=== PATIENT | male | born 1935 | race Two or more races ===

== ENCOUNTER 2018-06-23 15:34 | Emergency (ER) | payer MEDICARE, MEDICAID ==
[~2018-06-23] VITALS: Ht 167.6 cm; Wt 68.0 kg
[2018-06-23 15:47] VITALS: BP 154/73
[2018-06-23] MEDS ORDERED: BACITRACIN ZINC OINT PACKET 1 EA PACKET TP ONE ×2 (16:00)
--- NOTE | 2018-06-23 16:04 | NUR ---
CALLED [facility] FOR TRANSPORT BACK TO [facility]
--- NOTE | 2018-06-23 16:06 | NUR ---
SPOKE TO ERUM AT [facility]. ETA = [phone] TRIP #= [id number]
--- NOTE | 2018-06-23 17:16 | NUR ---
PT APPEARS TO BE SITTING PATIENTLY WHILE WAITING FOR AMBULANCE TO TAKE HIM BACK TO [facility].
== END 2018-06-23 17:48 | disposition home or self-care (01) ==
LOC: ER 15:34
DX: S61.412A Laceration without foreign body of left hand, initial encounter (principal); X58.XXXA Exposure to other specified factors, initial encounter; Y93.89 Activity, other specified; Y92.89 Other specified places as the place of occurrence of the external cause; Y99.8 Other external cause status
CPT/HCPCS: 99283; A6402

== ENCOUNTER 2019-10-13 14:39 | Inpatient (IN) | payer MEDICARE, OTHER ==
[~2019-10-13] VITALS: Ht 167.6 cm; Wt 72.6 kg
--- NOTE | 2019-10-13 14:50 | NUR ---
BIB EMS, CAME IN FOR ABD PAIN, TO ER BED 6, HOOKED TO MONITOR, CHANGED TO HOSP GOWN, WARM BLANKET PROVIDED, PATIENT IS ALERT BUT DOES NOT SPEAK [place]ORE[place], AWAITING MD ERICKSON. DR GODOY AT BEDSIDE.
[2019-10-13] MEDS ORDERED: ONDANSETRON HCL/PF 4 MG/2 ML VIAL ONE (14:57)
[2019-10-13] MEDS ORDERED: MORPHINE SULFATE INJ 4 MG/ML DISP.SYRIN ONE (14:57)
[2019-10-13] MEDS ORDERED: IV NS 0.9% 1,000 ML BAG IV ONE (15:00)
[2019-10-13] MEDS ORDERED: ONDANSETRON HCL/PF 4 MG/2 ML VIAL IVP ONE (15:00)
[2019-10-13] MEDS ORDERED: MORPHINE SULFATE INJ 2 MG/ML DISP.SYRIN IV ONE (15:00)
--- NOTE | 2019-10-13 15:00 | NUR ---
DR GODOY AT BEDSIDE, STARTED G18 LAC PIV, FLUIDS AND MEDS GIVE ORDERED
[2019-10-13 15:09] LABS: BASOPHILS % (AUTO) 0.3 % (0.0-2.0); EOSINOPHILS % (AUTO) 0.2 % (0.0-6.0); HEMATOCRIT 27 % (39-51); HEMOGLOBIN 9.1 g/dL (13.5-17.5); LYMPHOCYTES # (AUTO) 0.4 /CMM (0.8-4.8); LYMPHOCYTES % (AUTO) 8.3 % (20.0-44.0); MEAN CORPUSCULAR HGB CONC 34 g/dl (31.0-36.0); MEAN CORPUSCULAR VOLUME 87 fL (80-96); MONOCYTES # (AUTO) 0.5 /CMM (0.1-1.30); MONOCYTES % (AUTO) 9.4 % (2.0-12.0); NEUTROPHILS % (AUTO) 81.8 % (43.0-81.0); PLATELET COUNT (AUTO) 198 /CMM (150-450); RED BLOOD CELL COUNT(AUTO) 3.09 MIL/uL (4.5-6.0); WHITE BLOOD COUNT (AUTO) 4.8 K/uL (4.3-11.0)
[2019-10-13 15:15] LABS: CALCIUM, SERUM 8.2 mg/dL (8.5-10.1); CARBON DIOXIDE 17 mmol/L (21-32); CHLORIDE 97 mmol/L (98-107); CREATININE 2.2 mg/dL (0.6-1.3); GLUCOSE 113 mg/dL (74-106); POTASSIUM 4.9 mmol/L (3.5-5.1); SODIUM SERUM 128 mmol/L (136-145); UREA NITROGEN, BLOOD 63 mg/dL (7-18)
[2019-10-13 15:21] LABS: ALANINE AMINOTRANSFERASE 31 U/L (12-78); ALBUMIN 3.2 g/dL (3.4-5.0); ALKALINE PHOSPHATASE 58 U/L (46-116); ASPARTATE AMINOTRANSFERASE 58 U/L (15-37); BILIRUBIN,DIRECT 0.1 mg/dL (0.0-0.2); BILIRUBIN,TOTAL 0.3 mg/dL (0.2-1.0); LIPASE 332 U/L (73-393)
[2019-10-13] MEDS ORDERED: GLIM2TAB31 PO (16:56)
[2019-10-13] MEDS ORDERED: ESOM40CA PO (16:56)
[2019-10-13] MEDS ORDERED: CARV3.122 PO (16:56)
[2019-10-13] MEDS ORDERED: ASPI-1420 PO (16:56)
[2019-10-13] MEDS ORDERED: LOSA50TA39 PO (16:56)
[2019-10-13] MEDS ORDERED: SERT100T PO (16:56)
[2019-10-13] MEDS ORDERED: GABA300C PO (16:56)
[2019-10-13] MEDS ORDERED: AMLO5TAB9 PO (16:56)
[2019-10-13] MEDS ORDERED: SIMV10TA98 PO (16:56)
[2019-10-13] MEDS ORDERED: MECL-159 PO (16:56)
[2019-10-13] MEDS ORDERED: ALLO100T PO (16:56)
[2019-10-13] MEDS ORDERED: DOCU250C21 PO (16:56)
[2019-10-13] MEDS ORDERED: LISI-603 PO (16:56)
[2019-10-13] MEDS ORDERED: CHOL200074 PO (16:56)
[2019-10-13] MEDS ORDERED: CLON1TAB12 PO (16:56)
[2019-10-13] MEDS ORDERED: INSU100V7 SQ (17:01)
--- NOTE | 2019-10-13 17:08 | NUR ---
COVID19 TESTING DONE & SENT TO LAB.
--- NOTE | 2019-10-13 17:57 | NUR ---
RAPID QUIROS VIRUS SWAB DONE AND SENT TO LAB
[2019-10-13] MEDS ORDERED: CEFTRIAXONE 1GM BAG (ER ONLY) 1 GM/50 ML PIGGYBACK IV ONE (18:00)
[2019-10-13] MEDS ORDERED: AZITHROMYCIN 500 MG in IV D5W 250 ML IV ONE (18:00)
--- NOTE | 2019-10-13 18:16 | NUR ---
PAGED [facility].
[2019-10-13] MEDS ORDERED: CEFTRIAXONE 1 G in IV D5W 50 ML IV ONE (18:30)
--- NOTE | 2019-10-13 20:34 | NUR ---
ER SPOKE TO BONNIE BUSCH REGARDING PT ADMISSION.
--- NOTE | 2019-10-13 21:29 | NUR ---
REPORT CALLED TO BENEFITS ADVISOR PARTICK. WILL TRANSPORT PT VIA ACLS PROTOCOL.
--- NOTE | 2019-10-13 21:55 | NUR ---
"RN NOTE | ADMISSION RECEIVED PT FROM ER VIA GURNEY ACCOMPANIED BY 2 RNS AND TRANSFERRED TO BED VIA 2 PERSON ASSIST. PT IS ALERT AND ORIENTED X3. PT ON ROOM AIR WITH RESPIRATIONS EVEN AND UNLABORED. COMPREHENSIVE PHYSICAL ASSESSMENT DONE. CALL LIGHT WITHIN REACH, SAFETY MEASURES IN PLACE, WILL MONITOR."
--- NOTE | 2019-10-13 21:55 | NUR ---
RN NOTES CALLED CARE FACILITY ([facility] ) TO CONFIRM FOR ANY ADVANCE DIRECTIVE OF THE PATIENT. SPOKE WITH STAFF CATHY, HE CONFIRMED THAT PATIENT IS FULL CODE. DIAMOND MERCHANT MADE AWARE.
[2019-10-13 22:19] VITALS: BP 153/63
--- NOTE | 2019-10-13 22:30 | NUR ---
RN NOTES CALLED [facility] AND SECURE T.ORDER. CLIENT SUPPORT REPRESENTATIVE MADE AWARE
[2019-10-13] MEDS ORDERED: DEXTROSE 50%-WATER 50 ML DISP.SYRIN IV PRN (23:30)
[2019-10-13] MEDS ORDERED: ALBUTEROL SULFATE INH 18 GM HFA.AER.AD IH PRN (23:30)
[2019-10-14] VITALS: BP 150/59
[2019-10-14 04:00] VITALS: BP 150/66
--- NOTE | 2019-10-14 07:09 | NUR ---
RN CLOSING NOTES PATIENT REMAINS IN ROOM IN NO SIGNS OF RESPIRATORY DISTRESS. PATIENT SATURATING >95% O2. VITAL SIGNS WNL. SAFETY PRECAUTIONS IN PLACE AND COMFORT MEASURES RENDERED. BED IN LOWEST POSITION, CALL LIGHT WITHIN REACH, BREAKS ON, SIDE RAILS UP. ALL NEEDS ATTENDED ; SHIFT ASSESSMENT/BEDBATH/SKIN CARE DONE. PATIENT KEPT CLEAN AND DRY. WILL ENDORSE TO INCOMING SHIFT FOR AUSTEN.
[2019-10-14 07:26] LABS: BASOPHILS % (AUTO) 0.3 % (0.0-2.0); EOSINOPHILS % (AUTO) 0.1 % (0.0-6.0); HEMATOCRIT 27 % (39-51); HEMOGLOBIN 8.9 g/dL (13.5-17.5); LYMPHOCYTES # (AUTO) 0.3 /CMM (0.8-4.8); LYMPHOCYTES % (AUTO) 5.1 % (20.0-44.0); MEAN CORPUSCULAR HGB CONC 34 g/dl (31.0-36.0); MEAN CORPUSCULAR VOLUME 86 fL (80-96); MONOCYTES # (AUTO) 0.4 /CMM (0.1-1.30); MONOCYTES % (AUTO) 6.7 % (2.0-12.0); NEUTROPHILS # (AUTO) 4.7 /CMM (1.8-8.9); NEUTROPHILS % (AUTO) 87.8 % (43.0-81.0); PLATELET COUNT (AUTO) 210 /CMM (150-450); RED BLOOD CELL COUNT(AUTO) 3.07 MIL/uL (4.5-6.0); WHITE BLOOD COUNT (AUTO) 5.4 K/uL (4.3-11.0)
[2019-10-14 07:41] LABS: ALANINE AMINOTRANSFERASE 32 U/L (12-78); ALBUMIN 2.8 g/dL (3.4-5.0); ALKALINE PHOSPHATASE 46 U/L (46-116); ASPARTATE AMINOTRANSFERASE 55 U/L (15-37); BILIRUBIN,TOTAL 0.2 mg/dL (0.2-1.0); CALCIUM, SERUM 8.2 mg/dL (8.5-10.1); CARBON DIOXIDE 15 mmol/L (21-32); CHLORIDE 98 mmol/L (98-107); CREATININE 1.9 mg/dL (0.6-1.3); GLUCOSE 149 mg/dL (74-106); MAGNESIUM 2.1 mg/dL (1.8-2.4); PHOSPHORUS 4.4 mg/dL (2.5-4.9); POTASSIUM 4.7 mmol/L (3.5-5.1); SODIUM SERUM 128 mmol/L (136-145); TOTAL PROTEIN, SERUM 6.5 g/dL (6.4-8.2); UREA NITROGEN, BLOOD 56 mg/dL (7-18)
[2019-10-14 07:48] LABS: CHOLESTEROL 152 mg/dL (<200); HDL CHOLESTEROL 36 mg/dL (40-60); LDL 84 mg/dL (0-99); THYROID STIMULATING HORMONE 0.668 uIU/mL (0.358-3.74); TRIGLYCERIDES 185 mg/dL (30-150)
[2019-10-14] MEDS: BLOOD SUGAR DIAGNOSTIC 1 EACH STRIP IN SCH ×4 (07:50→22:26)
--- NOTE | 2019-10-14 07:50 | NUR ---
FUR BUYER NOTES INSULIN NOT AVAILABLE IN THE CASSETTE. CALLED PHARMACY FOR DELIVERY.
[2019-10-14 08:00] VITALS: BP 159/62
--- NOTE | 2019-10-14 08:15 | NUR ---
CASH REGISTER REPAIRER NOTES RECEIVED PATIENT IN BED A/OX 1-2 FARSI SPEAKER, ON ISOLATION FOR COVID 19(DROPLET) NO SOB OR DISCOMFORT NOTED AT THIS TIME. CAN AMBULATE WITH ASSIST. IC SITE ON RIGHT HAND PATENT AND FLUSHED WELL. BED AT THE LOWEST POSITION LOCKED. WILL CONTINUE TO MONITOR.
[2019-10-14] MEDS ORDERED: CEFTRIAXONE 1GM BAG (ER ONLY) 1 GM/50 ML PIGGYBACK IV SCH (09:00)
[2019-10-14] MEDS: AZITHROMYCIN 500 MG in IV D5W 250 ML IV SCH (09:01)
[2019-10-14] MEDS ORDERED: MECLIZINE HCL 25 MG TABLET PO PRN (10:00)
[2019-10-14] MEDS: PANTOPRAZOLE 40 MG TABLET.DR PO SCH (10:18)
[2019-10-14] MEDS: CHOLECALCIFEROL (VITAMIN D 3) 400 UNIT TABLET PO SCH (10:18)
[2019-10-14] MEDS: DEXAMETHASONE SOD PHOSPHATE 10 MG/ML VIAL IV SCH (11:42)
[2019-10-14 12:00] VITALS: BP 124/62
[2019-10-14] MEDS: INSULIN REGULAR, HUMAN 100 UNIT/ML 3 ML VIAL SQ PRN ×3 (12:06→22:28)
[2019-10-14] MEDS: CEFTRIAXONE 1 G in IV D5W 50 ML IV SCH (13:22)
[2019-10-14] MEDS: HEPARIN SODIUM, PORCINE 5000 UNITS/1 ML VIAL SQ SCH ×2 (13:27→20:40)
[2019-10-14] MEDS: IV D5/ 0.9% NACL 1,000 ML IV PRN ×2 (13:40→23:59)
[2019-10-14 16:00] VITALS: BP 124/62
--- NOTE | 2019-10-14 19:15 | NUR ---
RECEIVED PT A/OX 2-3; FARSI SPEAKING PATIENT, NOTED TO BE CONFUSED. PATIENT IN BED RESTING COMFORTABLY. PATIENT IN NO S/SX OF ACUTE DISTRESS AT THIS TIME. NO SOB NOTED. PATIENT'S BREATHING IS EVEN AND UNLABORED. PATIENT IS ON 2L OF OXYGEN VIA NC; TOLERATING WELL.PATIENT ON TELE MONITORING READING SINUS RHYTHM HR IS @70Ss UPON RECEIVED. NOTED IV SITE ON R AC #18 ; PATENT IN INTACT,NO S/S OF INFECTION OR INFILTRATION. WITH RUNNING IV FLUID OF D5NS @100MLS/HR. PATIENT ON CCHO DIET; ABLE TO FEED BY HIMSELF. SAFETY MEASURES HAVE BEEN PROVIDED AND IMPLEMENTED. PATIENT BED ALARM IS ON. HEAD OF BED ELEVATED. BED IS LOCKED, IN LOWEST POSITION AND SIDE RAILS UP. CALL LIGHT WITHIN REACH OF THE PATIENT. ISOLATION PRECAUTIONS IN PLACE. WILL CONTINUE TO MONITOR AND REASSESS FOR ANY CHANGES.
--- NOTE | 2019-10-14 19:32 | NUR ---
BASKET MENDER NOTES PATIENT IN BED SLEEPING, ABLE TO AROUSE WHEN NAME CALLED. ALL NEEDS ATTENDED.PATIENT IS CONFUSED AND HE MENTIONED THAT SOME NURSES STOLE HIS JACKET AND WATCH. INFORMED HIM THAT ALL BELONGINGS WILL BE CHARTED WHEN THEY ENTER THE HOSPITAL. NO SOB OR DISCOMFORT AT THIS MOMENT. CALL LIGHT WITHIN REACH. REPORT GIVEN TO SECONDARY SCHOOL TEACHER NURSE FOR AUSTEN.
[2019-10-14 20:00] VITALS: BP 150/56
[2019-10-15] VITALS: BP 158/63
--- NOTE | 2019-10-15 02:46 | NUR ---
RN NOTES NOTED THAT PATIENT PULLED OUT HIS IV LINE, FACILITATED IV LINE REINSERTION ASEPTICALLY @ R HAND GAUGE #22, ENSURED LINE TO BE PATENT AND INTACT. LABORATORY HELPER MADE AWARE
[2019-10-15 04:00] VITALS: BP 155/65
[2019-10-15] MEDS: HEPARIN SODIUM, PORCINE 5000 UNITS/1 ML VIAL SQ SCH ×3 (05:07→21:04)
[2019-10-15 06:38] LABS: BASOPHILS % (AUTO) 0.2 % (0.0-2.0); HEMATOCRIT 30 % (39-51); HEMOGLOBIN 10.2 g/dL (13.5-17.5); LYMPHOCYTES # (AUTO) 0.4 /CMM (0.8-4.8); LYMPHOCYTES % (AUTO) 4.8 % (20.0-44.0); MEAN CORPUSCULAR HGB CONC 34 g/dl (31.0-36.0); MEAN CORPUSCULAR VOLUME 87 fL (80-96); MONOCYTES # (AUTO) 0.4 /CMM (0.1-1.30); MONOCYTES % (AUTO) 5.4 % (2.0-12.0); NEUTROPHILS # (AUTO) 7.1 /CMM (1.8-8.9); NEUTROPHILS % (AUTO) 89.6 % (43.0-81.0); PLATELET COUNT (AUTO) 296 /CMM (150-450); RED BLOOD CELL COUNT(AUTO) 3.51 MIL/uL (4.5-6.0); WHITE BLOOD COUNT (AUTO) 7.9 K/uL (4.3-11.0)
[2019-10-15 06:59] LABS: CALCIUM, SERUM 8.8 mg/dL (8.5-10.1); CARBON DIOXIDE 17 mmol/L (21-32); CHLORIDE 99 mmol/L (98-107); CREATININE 1.8 mg/dL (0.6-1.3); GLUCOSE 164 mg/dL (74-106); MAGNESIUM 1.8 mg/dL (1.8-2.4); PHOSPHORUS 3.7 mg/dL (2.5-4.9); POTASSIUM 4.6 mmol/L (3.5-5.1); SODIUM SERUM 132 mmol/L (136-145); UREA NITROGEN, BLOOD 42 mg/dL (7-18)
[2019-10-15 08:00] VITALS: BP 133/78
--- NOTE | 2019-10-15 08:00 | NUR ---
DOCUMENTATION CLERK NOTE PATIENT IN BED ,VERY RESTLESS AND TRYING TO GET OUT OFF BED, ON2L NC SATURATION 96% AT THIS TIME ,NOTED WITH SOB AND WHIZZING UPON AUSCULTATION DR VELASQUEZ NOTIFIED , ON TELE MONITOR SR HR 86, FED PATIENT, ATE 25% AT THIS TIME, NEW HL ON RT [id number] ON IVF ORDERED, BLOOD SUGAR CHECKED BY HOME ECONOMICS TEACHER RN , ALL NEEDS ATTENDED ,BED IN LOWEST AND LOCKED POSITION , WILL MONITOR Addendum: 10/15/19 at 1343 by NICOLE ORTIZ RN WITH ABDOMINAL DISTENTION ,NO BM YET DR RODRIGUEZ AWARE
--- NOTE | 2019-10-15 08:57 | NUR ---
SAS ETL DEVELOPER NOTE VERY RESTLESS AND TRYING TO REMOVE ALL LINE ,PER DR RODRIGUEZ OK TO PLACE SOFT RESTRAIN, ORDER CARRIED OUT
[2019-10-15] MEDS: ALLOPURINOL 100 MG TABLET PO SCH (08:58)
[2019-10-15] MEDS: AMLODIPINE BESYLATE 5 MG TABLET PO SCH (08:59)
[2019-10-15] MEDS: DEXAMETHASONE SOD PHOSPHATE 10 MG/ML VIAL IV SCH (08:59)
[2019-10-15] MEDS: CHOLECALCIFEROL (VITAMIN D 3) 400 UNIT TABLET PO SCH (08:59)
[2019-10-15] MEDS: PANTOPRAZOLE 40 MG TABLET.DR PO SCH (08:59)
[2019-10-15] MEDS ORDERED: ASPIRIN EC 81 MG TABLET.DR PO SCH (09:00)
[2019-10-15] MEDS ORDERED: INSULIN GLARGINE, 100 UNIT/ML CARTRIDGE SQ SCH (09:00)
[2019-10-15] MEDS ORDERED: SIMVASTATIN 10 MG TABLET PO SCH (09:00)
[2019-10-15] MEDS ORDERED: LISINOPRIL (20MG) 20 MG TABLET PO SCH (09:00)
[2019-10-15] MEDS ORDERED: DOCUSATE SODIUM 250 MG CAPSULE PO SCH (09:00)
[2019-10-15] MEDS: AZITHROMYCIN 500 MG in IV D5W 250 ML IV SCH (09:00)
[2019-10-15] MEDS: BLOOD SUGAR DIAGNOSTIC 1 EACH STRIP IN SCH ×4 (09:02→21:04)
--- NOTE | 2019-10-15 10:00 | NUR ---
LAP MACHINE TENDER NOTE PER DR VELASQUEZ OK TO GET CONSENT FOR CONVALESCENT PLASMA, DR RODRIGUEZ NOTIFIED
[2019-10-15 12:00] VITALS: BP 128/78
[2019-10-15] MEDS: INSULIN REGULAR, HUMAN 100 UNIT/ML 3 ML VIAL SQ PRN ×3 (12:49→21:15)
--- NOTE | 2019-10-15 12:57 | NUR ---
VICE PRESIDENT TALENT MANAGEMENT NOTE RESTLESS AGAIN, REMOVE IV HL, DR RODRIGUEZ NOTIFIED OK TO PLACE MID LINE PATIENT ON ATB AND IVF , PER DR VELASQUEZ ORDERED CONVALESCENT PLASMA, ORDER CARRIED Addendum: 10/15/19 at 1836 by NICOLE ORTIZ RN asked to dr rodriguez to give some for agitation stated not for now ,monitor closely
[2019-10-15] MEDS: CEFTRIAXONE 1 G in IV D5W 50 ML IV SCH (13:11)
--- NOTE | 2019-10-15 13:26 | NUR ---
ROLLING MACHINE TENDER NOTE PER DR RODRIGUEZ OK TO REMOVE TELE MONITOR AWARE THAT VERY RESTLESS ALSO NOTIFIED THAT WITH SOB AND WHEEZING UPON ON AUSCULTATION, AWARE THAT HAS POOR OPPETITE OK TO START IVF AT NS AT 75 ML PER HOUR ,WILL MONITOR
--- NOTE | 2019-10-15 13:44 | NUR ---
TUGBOAT DISPATCHER NOTE 2D ECHO DONE ORDERED ,KEEP CLEAN DRY WILL MONITOR
[2019-10-15] MEDS: IV NS 0.9% 1,000 ML IV PRN (13:48)
[2019-10-15 16:40] VITALS: BP 165/66
--- NOTE | 2019-10-15 17:08 | NUR ---
ms rn note t 100.[address] jimenez no Tylenol at this time ,cooling measure implemented ,will monitor
--- NOTE | 2019-10-15 18:37 | NUR ---
ms rn note called son ,left a message about patent is agitation will await for return call
[2019-10-15 20:00] VITALS: BP 161/75
[2019-10-15] MEDS: ATORVASTATIN 10 MG TABLET PO SCH (21:03)
--- NOTE | 2019-10-15 22:13 | NUR ---
MS-1/DECORATING KILN OPERATOR SPOKE WITH DR. RODRIGUEZ REGARDING PTS CURRENT STATUS OF INCREASING AGITATION AND CURRENT VITAL SIGNS. REMERON 7.5MG PO QHS ORDERED. WILL CONTINUE TO MONITOR.
[2019-10-15] MEDS ORDERED: MIRTAZAPINE 15 MG TABLET PO SCH (22:30)
[2019-10-16] VITALS (20 sets, daily range): BP systolic 89–148; BP diastolic 44–87
[2019-10-16] MEDS: IV NS 0.9% 1,000 ML IV PRN ×2 (02:06→09:30)
--- NOTE | 2019-10-16 04:00 | NUR ---
MS-1/FOOD ASSEMBLER KITCHEN SPOKE WITH DR. RODRIGUEZ REGARDING PT CHANGE OF CONDITION SATURATING 86-87% ON NON-REBREATHER. RESPIRATIONS MORE LABORED THAN BEFORE. ADVISED TO CALL PULMONARY GROUP. SPOKE WITH DR. ANDRES AT [facility]. ORDER TO TRANSFER PT TO ICU AND START HI-FLOW O2 @ 60L 100% FIO2. ABG AND CXR IN AM.
--- NOTE | 2019-10-16 04:18 | NUR ---
MS-1/MANAGER PERSONAL REPORT GIVEN TO BENIGNO FREEMAN AND TRANSFERRED TO ICU ROOM 258 VIA ACLS PROTOCOL.
--- NOTE | 2019-10-16 04:19 | NUR ---
RN NOTES RECEIVED REPORT FROM JESS FOR AUSTEN.
--- NOTE | 2019-10-16 04:46 | NUR ---
MS-1/MARGI NEXT OF KIN CHICHI MCCORMICK [phone] WAS CALLED NO ANSWER, VOICEMAIL LEFT ABOUT PT TRANSFER.
[2019-10-16] MEDS: HEPARIN SODIUM, PORCINE 5000 UNITS/1 ML VIAL SQ SCH ×3 (05:06→21:04)
--- NOTE | 2019-10-16 05:20 | NUR ---
RT PATIENT WAS TRANSFERRED TO ICU FROM [facility] WHO HAD RESPIRATORY DISTRESS.PLACED PATIENT ON HIGH FLOW NASAL CANNULA 60L,100% FIO2 PER MD ORDER. PPATIENT TOLERATED CURRENT SETTINGS , WILL CONTINUE TO MONITOR. Addendum: 10/16/19 at 0524 by FERMIN TAYLOR RT Amended: Links added.
[2019-10-16 05:56] LABS: ABG OXYGEN SATURATION 95.9 % (92.0-98.5); ABG PCO2 20.8 mmHg (35.0-45.0); ABG PH 7.385 (7.350-7.450); ABG PO2 80.7 mmHg (75.0-100.0); AaDO2 611.5 mmHg; COHb 0.3 % (0.5-1.5); MetHb 0.1 % (0.0-1.5); O2Hb 95.5 % (94.0-97.0); SITE, ABG Right Radial; VENT MODE, BG HFNC 100%
--- NOTE | 2019-10-16 07:09 | NUR ---
RN NOTES PATIENT REMAINS ON HIGH FLOW OXYGEN SATURATING 89-91%. BREATHING NORMAL, RESPIRATION EVEN NON LABORED. VERONICA MIDLINE INTACT FLUSHES WELL. BUE SOFT RESTRAINS ARE IN PLACE FOR SAFETY RELEASED AND CHECKED FOR CIRCULATION AND PULSE. SAFETY MEASURES IN PLACE, CALL LIGHT WITHIN REACH. WILL ENDORSE TO AM NURSE FOR AUSTEN.
--- NOTE | 2019-10-16 07:29 | NUR ---
received patient on highflow 60L+nonrebreather SPO2 85%, HR 131, BP 142/72, respirations labored & short of breath
[2019-10-16] MEDS: BLOOD SUGAR DIAGNOSTIC 1 EACH STRIP IN SCH ×3 (07:30→17:50)
--- NOTE | 2019-10-16 07:46 | NUR ---
Dr. Menendez notified of patient condition
--- NOTE | 2019-10-16 08:08 | NUR ---
son Justus called, no answer, voicemail left
[2019-10-16 08:25] LABS: BASOPHILS % (AUTO) 0.3 % (0.0-2.0); HEMATOCRIT 34 % (39-51); HEMOGLOBIN 10.7 g/dL (13.5-17.5); LYMPHOCYTES # (AUTO) 0.3 /CMM (0.8-4.8); LYMPHOCYTES % (AUTO) 1.7 % (20.0-44.0); MEAN CORPUSCULAR HGB CONC 32 g/dl (31.0-36.0); MEAN CORPUSCULAR VOLUME 87 fL (80-96); MONOCYTES # (AUTO) 0.7 /CMM (0.1-1.30); MONOCYTES % (AUTO) 3.8 % (2.0-12.0); NEUTROPHILS # (AUTO) 16.9 /CMM (1.8-8.9); NEUTROPHILS % (AUTO) 94.2 % (43.0-81.0); PLATELET COUNT (AUTO) 390 /CMM (150-450); RED BLOOD CELL COUNT(AUTO) 3.85 MIL/uL (4.5-6.0)
[2019-10-16 08:36] LABS: CALCIUM, SERUM 8.6 mg/dL (8.5-10.1); CARBON DIOXIDE 15 mmol/L (21-32); CHLORIDE 101 mmol/L (98-107); CREATININE 2.2 mg/dL (0.6-1.3); GLUCOSE 170 mg/dL (74-106); POTASSIUM 5.1 mmol/L (3.5-5.1); SODIUM SERUM 132 mmol/L (136-145); UREA NITROGEN, BLOOD 50 mg/dL (7-18)
[2019-10-16] MEDS ORDERED: KETAMINE HCL (500MG/10ML) 50 MG/ML VIAL ONE (08:38)
--- NOTE | 2019-10-16 08:45 | NUR ---
RT PER DR VELASQUEZ ORDER PATIENT WAS ORALLY INTUBATED AND PLACED ON [facility] VENT. 7.5 ETT SECURED AT 20CM. POST CHEST XRAY ETT PUSHED ON 2CM AND SECURED AT 22CM AT THE LIP. VENT SETTINGS SET PER DR VELASQUEZ. ALARMS CHECKED + AUDIBLE. AMBU BAG AT HOB. Addendum: 10/16/19 at 1126 by RODERICK SILVEIRA RT Amended: Links added.
[2019-10-16] MEDS ORDERED: INSULIN GLARGINE, 100 UNIT/ML CARTRIDGE SQ SCH (09:00)
--- NOTE | 2019-10-16 09:23 | NUR ---
s/p intubation Hrpeter 20@lip, stat CXR ordered, OGT placed, cont to monitor vitals
[2019-10-16] MEDS ORDERED: PROPOFOL 100 ML IV PRN (09:30)
[2019-10-16] MEDS: PROPOFOL 100 ML IV PRN ×4 (09:36→23:19)
--- NOTE | 2019-10-16 10:41 | NUR ---
WOUND CARE CONSULT: UNABLE TO SEE PATIENT AT BEDSIDE AT THIS TIME ,PATIENT WAS INTUBATED AT 0845 , NOT HEMODYNAMICALLY STABLE FOR NOW BUT REVIEW CHART AND NURSING DOCUMENTATION AND PHOTOS, PRESENTS WITH SLIGHT REDNESS ON BUTTOCKS AND MULTIPLE SMALL BRUISES ON BOTH LEGS ,POA,RECOMMENDATION MADE FOR SKIN PROTECTION ,ISOFLEX FENG BED IN USE DISCUSSED WITH NURSING STAFF,WILL SEE MD KHANH IN AGREEMENT WITH PLAN OF CARE
[2019-10-16] MEDS ORDERED: SUCCINYLCHOLINE CHLORIDE 20 MG/ML VIAL ONE (11:00)
[2019-10-16 11:02] LABS: ABG BASE EXCESS -15.4 mmol/L; ABG PCO2 30.2 mmHg (35.0-45.0); ABG PH 7.194 (7.350-7.450); ABG PO2 72.4 mmHg (75.0-100.0); AaDO2 610.4 mmHg; COHb 0.3 % (0.5-1.5); MetHb 0.3 % (0.0-1.5); O2Hb 91.4 % (94.0-97.0); SITE, ABG Right Radial
[2019-10-16] MEDS ORDERED: DOCUSATE SODIUM LIQ 100 MG/10 ML UDC NG SCH (11:46)
[2019-10-16] MEDS: DEXAMETHASONE SOD PHOSPHATE 10 MG/ML VIAL IV SCH (11:47)
[2019-10-16] MEDS: ALLOPURINOL 100 MG TABLET PO SCH (11:50)
[2019-10-16] MEDS: AMLODIPINE BESYLATE 5 MG TABLET PO SCH (11:50)
[2019-10-16] MEDS: CHOLECALCIFEROL (VITAMIN D 3) 400 UNIT TABLET PO SCH (11:50)
[2019-10-16] MEDS: PANTOPRAZOLE 40 MG/PACK PACK GT SCH (12:07)
[2019-10-16] MEDS ORDERED: ACETAMINOPHEN 650 MG/20.3 ML UDC NG ONE (12:30)
[2019-10-16] MEDS ORDERED: diphenhydrAMINE HCL 50 MG/ML VIAL IV ONE (12:30)
[2019-10-16] MEDS ORDERED: TOCILIZUMAB 400 MG in IV NS 0.9% 80 ML IV ONE (13:00)
[2019-10-16 14:47] LABS: ALBUMIN 2.7 g/dL (3.4-5.0); BILIRUBIN,DIRECT 0.1 mg/dL (0.0-0.2); BILIRUBIN,TOTAL 0.3 mg/dL (0.2-1.0); TOTAL PROTEIN, SERUM 6.9 g/dL (6.4-8.2)
--- NOTE | 2019-10-16 15:23 | NUR ---
spoke to rissa mays [phone] Addendum: 10/16/19 at 1524 by RYDER SAMAYOA RN informed him that patient is intubated. states patient had some signs of dementia prior to infection
[2019-10-16] MEDS: Sodium Bicarbonate 50 MEQ in IV D5W 1,000 ML IV PRN (17:50)
[2019-10-16] MEDS: INSULIN REGULAR, HUMAN 100 UNIT/ML 3 ML VIAL SQ PRN (17:51)
--- NOTE | 2019-10-16 19:00 | NUR ---
FRONT DESK AUXILIARY Closing Patient remains sedated, attached to [facility] vent, no respiratory distress, SPO2 100%. Bedside monitor not working, using passport and sitting by room. Vitals inputted manually. SR 70s throughout shift with exception of beginning when patient was intubated. OGT in place verified via cxr, auscultation+aspiration. rasheed output 250 this shift. turned per protocol. restraints as patient pulls at lines. L UA midline infusing D5W+1amp bicarb @75mL/hr + dip. no update on convalescent plasma. s/p actemra - no signs of adverse reaction noted.
--- NOTE | 2019-10-16 19:30 | NUR ---
RN NOTES RECEIVED PATIENT INTUBATED SEDATED ON DIPRIVAN AT 50MCG TOLERATING WELL. NO DISTRESS NOTED. TELE MONITOR READING HR IN 80'S. OGT IN PLACED. IV SITE INTACT PATENT FLUSHED WELL. BUE SOFT RESTRAINS IN PLACE FOR SAFETY. F/C INTACT YELLOW URINE RUNNING TO GRAVITY. SAFETY MEASURES IN PLACE, CALL LIGHT WITHIN REACH. WILL CONT TO MONITOR FOR AUSTEN.
[2019-10-16] MEDS: ATORVASTATIN 10 MG TABLET PO SCH (22:14)
[2019-10-17] VITALS (59 sets, daily range): BP systolic 78–142; BP diastolic 43–83
[2019-10-17] MEDS: BLOOD SUGAR DIAGNOSTIC 1 EACH STRIP IN SCH ×4 (00:34→17:13)
[2019-10-17] MEDS ORDERED: NOREPINEPHRINE 8MG/250ML RTU 250 ML IV ONE (00:43)
[2019-10-17] MEDS: NOREPINEPHRINE 8 MG in IV NS 0.9% 242 ML IV PRN (01:26)
[2019-10-17] MEDS: PROPOFOL 100 ML IV PRN ×4 (04:11→22:25)
[2019-10-17 04:14] LABS: ALANINE AMINOTRANSFERASE 46 U/L (12-78); ALBUMIN 2.1 g/dL (3.4-5.0); ALKALINE PHOSPHATASE 52 U/L (46-116); ASPARTATE AMINOTRANSFERASE 61 U/L (15-37); BILIRUBIN,TOTAL 0.3 mg/dL (0.2-1.0); CALCIUM, SERUM 8.5 mg/dL (8.5-10.1); CARBON DIOXIDE 16 mmol/L (21-32); CHLORIDE 105 mmol/L (98-107); CREATININE 2.4 mg/dL (0.6-1.3); GLUCOSE 258 mg/dL (74-106); MAGNESIUM 2.2 mg/dL (1.8-2.4); PHOSPHORUS 5.5 mg/dL (2.5-4.9); SODIUM SERUM 135 mmol/L (136-145); TOTAL PROTEIN, SERUM 5.9 g/dL (6.4-8.2); UREA NITROGEN, BLOOD 63 mg/dL (7-18)
[2019-10-17 04:17] LABS: BASOPHILS % (AUTO) 0.1 % (0.0-2.0); HEMATOCRIT 27 % (39-51); HEMOGLOBIN 8.9 g/dL (13.5-17.5); LYMPHOCYTES # (AUTO) 0.4 /CMM (0.8-4.8); LYMPHOCYTES % (AUTO) 3.3 % (20.0-44.0); MEAN CORPUSCULAR HGB CONC 33 g/dl (31.0-36.0); MEAN CORPUSCULAR VOLUME 87 fL (80-96); MONOCYTES # (AUTO) 0.4 /CMM (0.1-1.30); MONOCYTES % (AUTO) 2.8 % (2.0-12.0); NEUTROPHILS # (AUTO) 11.7 /CMM (1.8-8.9); NEUTROPHILS % (AUTO) 93.8 % (43.0-81.0); PLATELET COUNT (AUTO) 329 /CMM (150-450); RED BLOOD CELL COUNT(AUTO) 3.07 MIL/uL (4.5-6.0); WHITE BLOOD COUNT (AUTO) 12.5 K/uL (4.3-11.0)
[2019-10-17 04:46] LABS: CREATINE KINASE, TOTAL 187 U/L (39-308)
[2019-10-17] MEDS: INSULIN REGULAR, HUMAN 100 UNIT/ML 3 ML VIAL SQ PRN ×3 (05:19→19:22)
[2019-10-17] MEDS: HEPARIN SODIUM, PORCINE 5000 UNITS/1 ML VIAL SQ SCH ×3 (05:25→21:15)
--- NOTE | 2019-10-17 07:23 | NUR ---
RN NOTES PATIENT CONTINUES ON DIPRIVAN TOLERATING WELL. TELE MONITOR READING SR. NO S/S OF DISTRESS NOTED. IV'S INTACT PATENT FLUSHES WELL. DURING SHIFT PATIENT NOTED WITH LOW B/P WAS 76/42, FACILITIES FLIGHT CHECK PILOT BELEN HURLEY NOTIFIED NEW ORDER RECEIVED FOR LEVO NOTED AND CARRIED OUT. CURRENTLY LEVO IS RUNNING AT 0.02MCG PATIENT TOLERATING WELL. BUE SOFT RESTRAINS IN PLACE FOR SAFETY. F/C INTACT YELLOW URINE RUNNING TO GRAVITY. SAFETY MEASURES IN PLACE, CALL LIGHT WITHIN REACH. ENDORSE TO AM NURSE FOR AUSTEN.
[2019-10-17] MEDS: Sodium Bicarbonate 50 MEQ in IV D5W 1,000 ML IV PRN (07:30)
[2019-10-17] MEDS: PANTOPRAZOLE 40 MG/PACK PACK GT SCH (08:19)
[2019-10-17] MEDS: ALLOPURINOL 100 MG TABLET PO SCH (08:19)
[2019-10-17] MEDS: DEXAMETHASONE SOD PHOSPHATE 10 MG/ML VIAL IV SCH (08:19)
[2019-10-17] MEDS: AMLODIPINE BESYLATE 5 MG TABLET PO SCH (08:20)
[2019-10-17] MEDS: CHOLECALCIFEROL (VITAMIN D 3) 400 UNIT TABLET PO SCH (08:21)
[2019-10-17 08:26] LABS: ABG BASE EXCESS -10.4 mmol/L; ABG OXYGEN SATURATION 98.7 % (92.0-98.5); ABG PCO2 24.3 mmHg (35.0-45.0); ABG PH 7.366 (7.350-7.450); ABG PO2 177.4 mmHg (75.0-100.0); AaDO2 367.5 mmHg; COHb 0.2 % (0.5-1.5); MetHb 0.2 % (0.0-1.5); O2Hb 98.3 % (94.0-97.0); PEEP,BG 10 cm H2O; SITE, ABG Right Radial; VT, ABG 550 mL
[2019-10-17] MEDS ORDERED: INSULIN GLARGINE, 100 UNIT/ML CARTRIDGE SQ SCH (09:00)
[2019-10-17] MEDS: Sodium Bicarbonate 100 MEQ in IV D5/0.45 NACL 1,000 ML IV PRN ×2 (12:53→23:37)
--- NOTE | 2019-10-17 18:50 | NUR ---
ICU/RN Closing notes Pt had a noneventful day. Remains intubated on the vent on AC 22, 550, 60%, PEEP 10, tolerating well. He was wide awake and agitated during sedation vacation, following commands. Gave 1 unit of convalescent plasma, no BT reaction noted. Addendum: 10/17/19 at 1858 by STEPHANY JONES RN Will give report to slot shift supervisor for AUSTEN.Levophed gas been off since this am, was able to keep MAP >60 as ordered.
[2019-10-17] MEDS: ATORVASTATIN 10 MG TABLET PO SCH (21:14)
[2019-10-18] VITALS (24 sets, daily range): BP systolic 97–143; BP diastolic 46–84
[2019-10-18] MEDS: INSULIN REGULAR, HUMAN 100 UNIT/ML 3 ML VIAL SQ PRN ×4 (00:11→18:12)
[2019-10-18] MEDS: BLOOD SUGAR DIAGNOSTIC 1 EACH STRIP IN SCH ×4 (00:12→18:11)
[2019-10-18] MEDS: PROPOFOL 100 ML IV PRN ×2 (00:44→05:20)
[2019-10-18 04:25] LABS: BASOPHILS % (AUTO) 0.3 % (0.0-2.0); EOSINOPHILS % (AUTO) 0.1 % (0.0-6.0); HEMATOCRIT 23 % (39-51); HEMOGLOBIN 8.3 g/dL (13.5-17.5); LYMPHOCYTES # (AUTO) 0.4 /CMM (0.8-4.8); LYMPHOCYTES % (AUTO) 7.8 % (20.0-44.0); MEAN CORPUSCULAR HGB CONC 36 g/dl (31.0-36.0); MEAN CORPUSCULAR VOLUME 85 fL (80-96); MONOCYTES # (AUTO) 0.3 /CMM (0.1-1.30); MONOCYTES % (AUTO) 4.9 % (2.0-12.0); NEUTROPHILS # (AUTO) 4.5 /CMM (1.8-8.9); NEUTROPHILS % (AUTO) 86.9 % (43.0-81.0); PLATELET COUNT (AUTO) 292 /CMM (150-450); RED BLOOD CELL COUNT(AUTO) 2.75 MIL/uL (4.5-6.0); WHITE BLOOD COUNT (AUTO) 5.2 K/uL (4.3-11.0)
[2019-10-18] MEDS: HEPARIN SODIUM, PORCINE 5000 UNITS/1 ML VIAL SQ SCH ×3 (04:29→21:37)
[2019-10-18 04:51] LABS: ALANINE AMINOTRANSFERASE 41 U/L (12-78); ALBUMIN 1.9 g/dL (3.4-5.0); ALKALINE PHOSPHATASE 46 U/L (46-116); ASPARTATE AMINOTRANSFERASE 49 U/L (15-37); BILIRUBIN,TOTAL 0.3 mg/dL (0.2-1.0); CALCIUM, SERUM 7.5 mg/dL (8.5-10.1); CARBON DIOXIDE 22 mmol/L (21-32); CHLORIDE 105 mmol/L (98-107); GLUCOSE 215 mg/dL (74-106); MAGNESIUM 2.2 mg/dL (1.8-2.4); PHOSPHORUS 3.4 mg/dL (2.5-4.9); POTASSIUM 3.2 mmol/L (3.5-5.1); SODIUM SERUM 138 mmol/L (136-145); TOTAL PROTEIN, SERUM 5.2 g/dL (6.4-8.2); UREA NITROGEN, BLOOD 60 mg/dL (7-18)
--- NOTE | 2019-10-18 06:00 | NUR ---
WASHING MACHINE OPERATOR: NO SIGNIFICANT AUSTEN DURING THE SHIFT. REMAINED INTUBATED WT SETTINGS ORDERED. NO ACUTE DISTRESS, NO EVIDENCE OF DISCOMFORT. SEDATED ON DIPRIVAN DRIP. BILAT. SOFT WRIST RESTRAINTS IN PLACE FOR EPISODES OF TRYING TO REACH TUBINGS. SKIN AND CIRCULATION WNL. SR/SB WT INVERTED T WAVE ON RETAIL SALES REPRESENTATIVE. AFEBRILE. STILL OFF VASOPRESSOR. OGT IN PLACE. F/C PATENT AND INTACT DRAINING YELLOW URINE TO GRAVITY. CONTINUE ON BICARB DRIP AT 100ML/HR. S/S OF MIDLINE INFILTRATION. HOB AT 35 DEGREES. BED IN LOWEST POSITION AND LOCKED, SIDE RAILS UP X 3. BED ALARM ACTIVATED. WILL CONTINUE TO MONITOR.
--- NOTE | 2019-10-18 08:00 | NUR ---
ELECTRICAL ENGINEER MEP NOTES RECEIVED PATIENT SEDATED ON DIPRIVAN 50MCG. ON DROPLET ISOLATION. PATIENT ON CHOU. NO SOB OR DISCOMFORT NOTED AT THIS TIME. OG PLACEMENT CONFIRMED BY AUSCULTATION GURGLING OBSERVED. NO RESIDUAL NOTED. CALL LIGHT WITHIN REACH, BED AT THE LOWEST POSITION LOCKED. WILL FOLLOW UP.
[2019-10-18 08:10] LABS: ABG BASE EXCESS -3.1 mmol/L; ABG OXYGEN SATURATION 94.2 % (92.0-98.5); ABG PCO2 27.8 mmHg (35.0-45.0); ABG PH 7.474 (7.350-7.450); ABG PO2 70.4 mmHg (75.0-100.0); AaDO2 254.8 mmHg; MetHb 0.1 % (0.0-1.5); O2Hb 93.2 % (94.0-97.0); SITE, ABG Right Radial
[2019-10-18] MEDS: DEXAMETHASONE SOD PHOSPHATE 10 MG/ML VIAL IV SCH (08:14)
[2019-10-18] MEDS: INSULIN GLARGINE, 100 UNIT/ML CARTRIDGE SQ SCH (08:28)
--- NOTE | 2019-10-18 08:45 | NUR ---
FARM LABORER NOTES PER DR RODRIGUEZ NPO EXCEPT MEDS.
[2019-10-18] MEDS: ALLOPURINOL 100 MG TABLET PO SCH (08:46)
[2019-10-18] MEDS: AMLODIPINE BESYLATE 5 MG TABLET PO SCH (08:46)
[2019-10-18] MEDS: CHOLECALCIFEROL (VITAMIN D 3) 400 UNIT TABLET PO SCH (08:47)
[2019-10-18] MEDS: PANTOPRAZOLE 40 MG/PACK PACK GT SCH (08:47)
--- NOTE | 2019-10-18 08:59 | NUR ---
CONNECTION WORKER NOTES INFORMED DR VELASQUEZ THAT PT TRIGLYCERIDE IS HIGH. PER DR VELASQUEZ STOP DIPRIVAN AND START (Precedex 400 Mcg/100 ml Bottle 400 MCG/100 ML) . CALLED PHARMACY AND NOTIFIED.
[2019-10-18] MEDS: PRECEDEX 400 MCG/100 ML BOTTLE 100 ML IV PRN ×5 (09:40→23:10)
--- NOTE | 2019-10-18 09:50 | NUR ---
SNUFF DRIER NOTES (SEDATION VACATION) SEDATION VACATION PERFORMED FOR PATIENT. WHEN DIPRIVAN WAS DECREASED, PATIENT WAS ALERT , WITH OPENED EYES, ABLE TO SQUEEZE RN HANDS. ABLE TO MOVE THE LEGS.
[2019-10-18] MEDS: Sodium Bicarbonate 100 MEQ in IV D5/0.45 NACL 1,000 ML IV PRN (10:41)
[2019-10-18] MEDS ORDERED: POTASSIUM CL. PREMIX PERIPHER. 50 ML IV SCH (11:00)
--- NOTE | 2019-10-18 11:38 | NUR ---
MEAT BLENDER NOTES PER DR RODRIGUEZ, STOP THE IV INFUSION OF POTASSIUM CHLORIDE AFTER FIRST BAG. GIVE ADDITIONAL 10 MEQ POTASSIUM OG TODAY. FOLLOW BY POTASSIUM CHLORIDE 20 MEQ DAILY FOR 3 DAYS OG.
[2019-10-18] MEDS ORDERED: POTASSIUM CHLORIDE 20 MEQ POWDER PACKET GT ONE (12:00)
[2019-10-18 13:09] LABS: PTH, INTACT 36 pg/mL (15-65)
[2019-10-18] MEDS ORDERED: IV LR 1000 ML 1,000 ML IV PRN (16:00)
--- NOTE | 2019-10-18 16:04 | NUR ---
JOY LOADER NOTES INFORMED DR MAI THAT WILL START GLUCERNA1.2 FEEDING . PER MD CHANGE IV Lr FROM 75ML/HR TO 40 ML/HR.
[2019-10-18 16:07] LABS: *SPE A/G RATIO 0.8 (0.7-1.7); *SPE ALBUMIN 2.2 g/dL (2.9-4.4); *SPE ALPHA-1-GLOBULIN 0.4 g/dL (0.0-0.4); *SPE ALPHA-2-GLOBULIN 1.2 g/dL (0.4-1.0); *SPE BETA GLOBULIN 0.7 g/dL (0.7-1.3); *SPE GLOBULIN, TOTAL 2.9 g/dL (2.2-3.9); *SPE M-SPIKE Not Observed g/dL (Not Observed); *SPEGAMMA GLOBULIN 0.7 g/dL (0.4-1.8)
[2019-10-18] MEDS: GLUCERNA 1.5 1,000 ML BOTTLE NG PRN (16:19)
--- NOTE | 2019-10-18 19:00 | NUR ---
Received patient orally intubated to the ventilator on AC mode,mildly sedated RASS -2, with Precedex drip, easily awakens, tries to talk, moves all extremities, gets restless easily whenever awakens,tries to get off wrist restraints. Breathing regular,non labored, + strong cough and gag .With on going tube feeding via OGT,Aspiration Precaution observed,residuals monitored,will increase feeding to goal of 50 ml/hr as tolerated. Comfort care done,needs attended.Psychological support rendered.
--- NOTE | 2019-10-18 19:11 | NUR ---
PREPPER NOTES PATIENT IN BED CALM , SLEEPING. ON DROPLET ISOLATION. TOLERATING FEEDING WELL AT 20 ML/HR. ON PRECEDEX 26ML/HR (MAXIMUM DOSE). PATIENT WAS MOSTLY AWAKE DURING DAY. NOTIFIED DR VELASQUEZ. ON CHOU, PATENT, GOOD URINE OUTPUT. NO SOB OR DISTRESS AT THIS TIME. REPORT GIVENT O MANAGER PUBLIC NURSE FOR AUSTEN.
--- NOTE | 2019-10-18 20:32 | NUR ---
RT NOTE PT INTUBATED WITH 7.5 ET TUBE @ 22 CM. PT AWAKE/ALERT. MOVED ET TUBE TO MID LIP LINE. SX DONE, ET TUBE SECURED AND PATENT. ALARMS ON AND AUDIBLE. NO DISTRESS NOTED AT THIS TIME. VENT PLUGGED TO RED OUTLET. NO DISTRESS NOTED AT THIS TIME. WILL CONTINUE TO MONITOR T/O SHIFT. Addendum: 10/18/19 at 2031 by CANDIE GUADARRAMA RT Amended: Links added.
[2019-10-18] MEDS: ATORVASTATIN 10 MG TABLET PO SCH (21:36)
--- NOTE | 2019-10-18 22:00 | NUR ---
Stable,asleep but gets restless when awakens,maintain Precedex drip (max dose 1.5 mcg/kg/min)
[2019-10-19] VITALS (28 sets, daily range): BP systolic 66–186; BP diastolic 36–94
--- NOTE | 2019-10-19 | NUR ---
Status unchanged. Noted to be bradycardic when asleep, HR=50-52, asymptomatic,BP stable.
[2019-10-19] MEDS: BLOOD SUGAR DIAGNOSTIC 1 EACH STRIP IN SCH ×4 (00:28→18:10)
[2019-10-19] MEDS: PRECEDEX 400 MCG/100 ML BOTTLE 100 ML IV PRN ×2 (03:06→06:57)
--- NOTE | 2019-10-19 04:00 | NUR ---
Stable on and off agitated but easily calms down ,still on Precdex drip.
[2019-10-19 04:13] LABS: BASOPHILS % (AUTO) 0.2 % (0.0-2.0); EOSINOPHILS % (AUTO) 0.4 % (0.0-6.0); HEMATOCRIT 25 % (39-51); HEMOGLOBIN 8.6 g/dL (13.5-17.5); LYMPHOCYTES # (AUTO) 0.4 /CMM (0.8-4.8); LYMPHOCYTES % (AUTO) 5.7 % (20.0-44.0); MEAN CORPUSCULAR HGB CONC 34 g/dl (31.0-36.0); MEAN CORPUSCULAR VOLUME 86 fL (80-96); MONOCYTES # (AUTO) 0.3 /CMM (0.1-1.30); MONOCYTES % (AUTO) 3.8 % (2.0-12.0); NEUTROPHILS # (AUTO) 6.9 /CMM (1.8-8.9); NEUTROPHILS % (AUTO) 89.9 % (43.0-81.0); PLATELET COUNT (AUTO) 299 /CMM (150-450); RED BLOOD CELL COUNT(AUTO) 2.94 MIL/uL (4.5-6.0); WHITE BLOOD COUNT (AUTO) 7.7 K/uL (4.3-11.0)
[2019-10-19 04:36] LABS: ALANINE AMINOTRANSFERASE 50 U/L (12-78); ALKALINE PHOSPHATASE 50 U/L (46-116); ASPARTATE AMINOTRANSFERASE 59 U/L (15-37); BILIRUBIN,TOTAL 0.3 mg/dL (0.2-1.0); CALCIUM, SERUM 7.9 mg/dL (8.5-10.1); CARBON DIOXIDE 26 mmol/L (21-32); CHLORIDE 109 mmol/L (98-107); CREATININE 1.5 mg/dL (0.6-1.3); GLUCOSE 159 mg/dL (74-106); MAGNESIUM 2.1 mg/dL (1.8-2.4); PHOSPHORUS 4.1 mg/dL (2.5-4.9); POTASSIUM 4.3 mmol/L (3.5-5.1); SODIUM SERUM 143 mmol/L (136-145); TOTAL PROTEIN, SERUM 5.6 g/dL (6.4-8.2); UREA NITROGEN, BLOOD 57 mg/dL (7-18)
[2019-10-19] MEDS: HEPARIN SODIUM, PORCINE 5000 UNITS/1 ML VIAL SQ SCH ×3 (05:25→21:45)
[2019-10-19] MEDS: INSULIN REGULAR, HUMAN 100 UNIT/ML 3 ML VIAL SQ PRN ×3 (05:45→18:12)
--- NOTE | 2019-10-19 06:00 | NUR ---
Feeding now at goal 50 ml/hr,tolerating feeding
[2019-10-19] MEDS ORDERED: MORPHINE SULFATE INJ 4 MG/ML DISP.SYRIN IV STA (07:56)
[2019-10-19] MEDS: POTASSIUM CHLORIDE 20 MEQ POWDER PACKET GT SCH (08:13)
[2019-10-19] MEDS: ALLOPURINOL 100 MG TABLET PO SCH (08:14)
[2019-10-19] MEDS: PANTOPRAZOLE 40 MG/PACK PACK GT SCH (08:14)
[2019-10-19] MEDS: DEXAMETHASONE SOD PHOSPHATE 10 MG/ML VIAL IV SCH (08:14)
[2019-10-19] MEDS: CHOLECALCIFEROL (VITAMIN D 3) 400 UNIT TABLET PO SCH (08:14)
[2019-10-19] MEDS: INSULIN GLARGINE, 100 UNIT/ML CARTRIDGE SQ SCH (08:15)
[2019-10-19] MEDS: MIDAZOLAM HCL 100 MG in IV NS 0.9% 80 ML IV PRN ×2 (08:51→22:10)
[2019-10-19] MEDS: FENTANYL CITRATE IV 1,250 MCG in IV NS 0.9% 225 ML IV PRN ×2 (08:52→19:55)
[2019-10-19 09:38] LABS: ABG BASE EXCESS -8.3 mmol/L; ABG OXYGEN SATURATION 87.4 % (92.0-98.5); ABG PCO2 36.5 mmHg (35.0-45.0); ABG PH 7.296 (7.350-7.450); ABG PO2 61.7 mmHg (75.0-100.0); AaDO2 614.8 mmHg; COHb 0.3 % (0.5-1.5); MetHb 0.3 % (0.0-1.5); O2Hb 86.9 % (94.0-97.0); SITE, ABG Right Radial; VENT MODE, BG AC 22 500 +10 100
[2019-10-19] MEDS: NOREPINEPHRINE 8 MG in IV NS 0.9% 242 ML IV PRN (10:13)
[2019-10-19] MEDS ORDERED: IV D5/ 0.9% NACL 1,000 ML IV PRN (12:30)
--- NOTE | 2019-10-19 14:38 | NUR ---
RT 0830: RECEIVED PT ORALLY INTUBATED. PT SPO2 DECREASED AND FIO2 WAS INCREASED TO 100%. DR VELASQUEZ AWARE. PER MD TRY TO TITRATE PT TO 50% FIO2 ONCE PT IS SEDATED, IF UNABLE, OBTAIN AN ABG. 0937: PT SEDATED SP02 DROPS TO 77-88%, SWITCHED PT TO INVERSE RATIO, SP02 INCREASED TO 98-99%. MD DR VELASQUEZ AWARE OF CHANGES TO VENTILATOR. ABG RESULTS DONE AND PER MD, NO CHANGES. 1253: PER MD ORDER INCREASE PEEP TO +12. RN AWARE. DECREASED FIO2 TO 70% PER MD ORDER TO TITRATE FIO2 WITH PT'S SP02 >94%. PT SP02 ON FIO2 OF 70% , 98-99%. RN AWARE. NO SOB OR RESP DISTRESS NOTED, WILL CONTINUE TO MONITOR T/O SHIFT.
--- NOTE | 2019-10-19 17:25 | NUR ---
ICU/RN CLOSING NOTES Pt was received orally intubated on the vent and sedated with Precedex. Pt was awake and restless, trying to get out of bed. SBP 160's, HR 150's O2 sat 70-88%. Dr. Jackson and Dr. Menendez were made aware. Gave one time Morpine IVP order but did not help much. Dr. Menendez changed the sedation to Fentanyl and Versed drips. Pt finally calmed down after. RT also changed the vent settings to inverse ration, inc PEEP to +12 and kept FiO2 at 100% as ordered by Dr. Menendez, ABG done as well. Pt had very erratic BP during the process but was able to keep SBP >100 without pressors for most part of the shift. Pt was turned and repositioned regularly as tolerated, no new skin breakdown noted. Tolerating TF at 50ml/hr. Vent settings currently at AC 22, TV 500, PEEP +12, FiO2 at 70%, tolerating well. Will give report to night worker for AUSTEN.
[2019-10-19] MEDS: FUROSEMIDE 20 MG/2 ML VIAL IV SCH (17:40)
--- NOTE | 2019-10-19 19:00 | NUR ---
Received patient orally intubated to the ventilator on AC mode,sedated (RASS-3),responds to deep pain and on suctioning + cough /+ gag,slightly opens eyes to pain,moves extremities.Maintained on bilateral soft wrist restraints to prevent self extubation.On Versed drip and Fentanyl drip via ADRIENNE midline.Ongoing tube feeding via OGT,Aspiration Precaution implemented. On Contact and enhanced Droplet isolation due to COVID +.Comfort care done,needs attended.
[2019-10-19] MEDS: ATORVASTATIN 10 MG TABLET PO SCH (21:44)
--- NOTE | 2019-10-19 22:00 | NUR ---
no change in status,remains well sedated,no ventilator asynchrony,PIP=33,.
[2019-10-20] VITALS (24 sets, daily range): BP systolic 114–171; BP diastolic 57–84
--- NOTE | 2019-10-20 | NUR ---
Remains well sedated,no sign of distress or desaturation.V/S stable.
[2019-10-20] MEDS: BLOOD SUGAR DIAGNOSTIC 1 EACH STRIP IN SCH ×5 (00:56→23:25)
[2019-10-20] MEDS: INSULIN REGULAR, HUMAN 100 UNIT/ML 3 ML VIAL SQ PRN ×5 (00:57→23:25)
[2019-10-20] MEDS: GLUCERNA 1.5 1,000 ML BOTTLE NG PRN (02:49)
--- NOTE | 2019-10-20 04:00 | NUR ---
Noted patient to be a little more responsive and more arousble ,but still calm, with periods of coughing /bucking the ventilator.Maintain Versed and Fentanyl drip at same rate.
[2019-10-20 04:27] LABS: BASOPHILS % (AUTO) 0.1 % (0.0-2.0); EOSINOPHILS % (AUTO) 0.7 % (0.0-6.0); HEMATOCRIT 29 % (39-51); HEMOGLOBIN 9.7 g/dL (13.5-17.5); LYMPHOCYTES # (AUTO) 0.5 /CMM (0.8-4.8); LYMPHOCYTES % (AUTO) 3.9 % (20.0-44.0); MEAN CORPUSCULAR HGB CONC 33 g/dl (31.0-36.0); MEAN CORPUSCULAR VOLUME 87 fL (80-96); MONOCYTES # (AUTO) 0.5 /CMM (0.1-1.30); MONOCYTES % (AUTO) 4.3 % (2.0-12.0); NEUTROPHILS # (AUTO) 10.8 /CMM (1.8-8.9); PLATELET COUNT (AUTO) 316 /CMM (150-450); RED BLOOD CELL COUNT(AUTO) 3.37 MIL/uL (4.5-6.0); WHITE BLOOD COUNT (AUTO) 11.9 K/uL (4.3-11.0)
[2019-10-20 04:56] LABS: ALANINE AMINOTRANSFERASE 56 U/L (12-78); ALBUMIN 2.2 g/dL (3.4-5.0); ALKALINE PHOSPHATASE 69 U/L (46-116); ASPARTATE AMINOTRANSFERASE 64 U/L (15-37); BILIRUBIN,TOTAL 0.2 mg/dL (0.2-1.0); CALCIUM, SERUM 7.7 mg/dL (8.5-10.1); CARBON DIOXIDE 25 mmol/L (21-32); CHLORIDE 113 mmol/L (98-107); CREATININE 1.6 mg/dL (0.6-1.3); GLUCOSE 148 mg/dL (74-106); MAGNESIUM 2.2 mg/dL (1.8-2.4); PHOSPHORUS 5.2 mg/dL (2.5-4.9); POTASSIUM 4.7 mmol/L (3.5-5.1); SODIUM SERUM 146 mmol/L (136-145); TOTAL PROTEIN, SERUM 5.8 g/dL (6.4-8.2); UREA NITROGEN, BLOOD 65 mg/dL (7-18)
[2019-10-20] MEDS: FENTANYL CITRATE IV 1,250 MCG in IV NS 0.9% 225 ML IV PRN ×4 (05:17→22:55)
[2019-10-20] MEDS: HEPARIN SODIUM, PORCINE 5000 UNITS/1 ML VIAL SQ SCH ×3 (05:19→21:06)
--- NOTE | 2019-10-20 06:00 | NUR ---
Seems more agitated this morning,moving and kicking legs ,trying to get off wrist restraints.Versed drip increase and titrate as needed.
[2019-10-20] MEDS: MIDAZOLAM HCL 100 MG in IV NS 0.9% 80 ML IV PRN ×3 (06:09→22:56)
--- NOTE | 2019-10-20 07:00 | NUR ---
Report given to Arcelia FREEMAN
[2019-10-20 07:51] LABS: ABG BASE EXCESS -3.7 mmol/L; ABG OXYGEN SATURATION 98.3 % (92.0-98.5); ABG PCO2 37.6 mmHg (35.0-45.0); ABG PH 7.368 (7.350-7.450); ABG PO2 148.9 mmHg (75.0-100.0); AaDO2 309.8 mmHg; COHb 0.2 % (0.5-1.5); MetHb 0.3 % (0.0-1.5); O2Hb 97.8 % (94.0-97.0); PEEP,BG 12 cm H2O; SITE, ABG Right Radial; VT, ABG 500 mL
--- NOTE | 2019-10-20 08:15 | NUR ---
GAS ANALYST NOTES OPENING PATIENT IN BED SLEEPING, AROUSES WHEN NAME CALLED. AGITATION NOTED WHEN ENTERED ROOM, PATIENT MOVES HIS HANDS AND LEGS. ON DROPLET ISOLATION FOR COVID-19. IV SITES PATENT. ON CHOU. BED AT THE LOWEST POSITION LOCKED, CALL LIGHT WITHIN REACH. WILL CONTINUE TO MONITOR THE PATIENT. Addendum: 10/20/[address] RN GAS ANALYST NOTES NO RESIDUAL NOTED AT OG SITE. AUSCULTATED AND GURGLING NOTED.
--- NOTE | 2019-10-20 08:50 | NUR ---
MANAGER OF BROADCAST CONTENT NOTED (SEDATION VACATION) PER DR VELASQUEZ, DO NOT PERFORM SEDATION VACATION DUE TO PATIENT BEING ON HIGH VENTILATOR SETTING AND NOT STABLE.
[2019-10-20] MEDS: POTASSIUM CHLORIDE 20 MEQ POWDER PACKET GT SCH (09:03)
[2019-10-20] MEDS: FUROSEMIDE 20 MG/2 ML VIAL IV SCH (09:04)
[2019-10-20] MEDS: CHOLECALCIFEROL (VITAMIN D 3) 400 UNIT TABLET PO SCH (09:04)
[2019-10-20] MEDS: DEXAMETHASONE SOD PHOSPHATE 10 MG/ML VIAL IV SCH (09:04)
[2019-10-20] MEDS: ALLOPURINOL 100 MG TABLET PO SCH (09:04)
[2019-10-20] MEDS: PANTOPRAZOLE 40 MG/PACK PACK GT SCH (09:04)
[2019-10-20] MEDS: INSULIN GLARGINE, 100 UNIT/ML CARTRIDGE SQ SCH (09:30)
[2019-10-20] MEDS ORDERED: SENNOSIDES 8.6 MG TABLET GT SCH ×2 (14:30)
--- NOTE | 2019-10-20 14:38 | NUR ---
LINING IRONER NOTES PATIENT DID NOT HAVE BOWEL MOVEMENT FROM 10/15/2019. OBTAINED SENOKOT 8.6 2 TAB GT DAILY FROM DR RODRIGUEZ. Addendum: 10/20/[address] RN LINING IRONER NOTES MADE CLARIFICATION WITH DR RODRIGUEZ FOR SENOKOT 17.2 2 TAB.
[2019-10-20] MEDS: GLUCERNA 1.2 1,000 ML BOTTLE NG PRN (18:11)
--- NOTE | 2019-10-20 18:45 | NUR ---
WELL LOGGING CAPTAIN NOTES PATIENT IN BED SEDATED, ON DROPLET ISOLATION. IV SITES PATENT. HR 84 SR. ALL NEEDS ATTENDED AND MED GIVEN DURING SHIFT. NO RESIDUAL NOTED AT GT FEEDING SITE. AUSCULTATED AND GURGLING NOTED. NO SOB OR DISCOMFORT NOTED. REPORT WILL BE GIVEN TO DRIVER MANAGER NURSE FOR AUSTEN.
--- NOTE | 2019-10-20 19:15 | NUR ---
RN OPENING NOTE PATIENT IN BED SEDATED. ISOLATION PRECAUTIONS IN PLACE. IV SITES PATENT AND WITHOUT SIGNS OF COMPLICATIONS AT SITES. PT IS SR ON THE MONITOR. VITAL SIGNS WNL. RESTRAINTS IN PLACE ORDERED. CHOU CATHETER PATENT AND IN PLACE DRAINING CLEAR YELLOW URINE. GT FEEDING RUNNING ORDERED. PLACEMENT VERIFIED VIA AUSCULTATION. NO RESIDUAL NOTED. NO SOB OR DISCOMFORT NOTED. TOLERATING VENT SETTINGS WELL. SAFETY MEASURES IN PLACE, WILL MONITOR PT CLOSELY.
[2019-10-20] MEDS: ATORVASTATIN 10 MG TABLET PO SCH (21:05)
[2019-10-21] VITALS (24 sets, daily range): BP systolic 119–168; BP diastolic 56–98
[2019-10-21 04:47] LABS: BASOPHILS % (AUTO) 0.1 % (0.0-2.0); EOSINOPHILS % (AUTO) 0.8 % (0.0-6.0); HEMATOCRIT 30 % (39-51); HEMOGLOBIN 9.8 g/dL (13.5-17.5); LYMPHOCYTES # (AUTO) 0.6 /CMM (0.8-4.8); LYMPHOCYTES % (AUTO) 4.6 % (20.0-44.0); MEAN CORPUSCULAR HGB CONC 32 g/dl (31.0-36.0); MEAN CORPUSCULAR VOLUME 89 fL (80-96); MONOCYTES # (AUTO) 0.7 /CMM (0.1-1.30); MONOCYTES % (AUTO) 5.5 % (2.0-12.0); PLATELET COUNT (AUTO) 348 /CMM (150-450); RED BLOOD CELL COUNT(AUTO) 3.41 MIL/uL (4.5-6.0); WHITE BLOOD COUNT (AUTO) 13.5 K/uL (4.3-11.0)
[2019-10-21 05:10] LABS: ALANINE AMINOTRANSFERASE 78 U/L (12-78); ALBUMIN 2.4 g/dL (3.4-5.0); ALKALINE PHOSPHATASE 66 U/L (46-116); ASPARTATE AMINOTRANSFERASE 80 U/L (15-37); BILIRUBIN,TOTAL 0.3 mg/dL (0.2-1.0); CALCIUM, SERUM 8.2 mg/dL (8.5-10.1); CARBON DIOXIDE 24 mmol/L (21-32); CHLORIDE 113 mmol/L (98-107); CREATININE 1.6 mg/dL (0.6-1.3); GLUCOSE 165 mg/dL (74-106); MAGNESIUM 2.3 mg/dL (1.8-2.4); PHOSPHORUS 5.5 mg/dL (2.5-4.9); POTASSIUM 5.3 mmol/L (3.5-5.1); SODIUM SERUM 147 mmol/L (136-145); TOTAL PROTEIN, SERUM 6.2 g/dL (6.4-8.2); UREA NITROGEN, BLOOD 69 mg/dL (7-18)
[2019-10-21] MEDS: BLOOD SUGAR DIAGNOSTIC 1 EACH STRIP IN SCH ×4 (05:12→23:50)
[2019-10-21] MEDS: INSULIN REGULAR, HUMAN 100 UNIT/ML 3 ML VIAL SQ PRN ×4 (05:15→23:52)
[2019-10-21] MEDS: HEPARIN SODIUM, PORCINE 5000 UNITS/1 ML VIAL SQ SCH ×2 (05:16→12:01)
--- NOTE | 2019-10-21 06:34 | NUR ---
RN NOTE ATTEMPTED TO CALL PHARMACY A SECOND TIME FOR NEW BAG OF FENTANYL BUT STILL NOT ANSWERING. SALES AUDIT CLERK ED AWARE. PT WITH MILD SIGNS OF AGITATION. WILL MONITOR PT CLOSELY. SAFETY MEASURES IN PLACE AT ALL TIMES.
--- NOTE | 2019-10-21 06:53 | NUR ---
RN NOTE MADE FOLLOW UP CALL TO PHARMACY REGARDING FENTANYL REFILL. STILL NOT ANSWERING. MAINTAINED CLOSE MONITORING OF PATIENT. SAFETY MEASURES IN PLACE AT ALL TIMES.
--- NOTE | 2019-10-21 07:05 | NUR ---
RN NOTE SPOKE TO PHARMACY WHO STATED THEY WILL BRING OVER NEW BAG OF FENTANYL MAURO.
--- NOTE | 2019-10-21 07:07 | NUR ---
RN CLOSING NOTE NO ACUTE CHANGES OBSERVED OVERNIGHT. AWAITING FENTANYL REFILL FROM PHARMACY. PT TOLERATING VENT SETTINGS WELL. GT FEEDING RUNNING ORDERED VIA OGT AND TOLERATING WELL WITHOUT MINIMAL GASTRIC RESIDUAL. BILATERAL SOFT WRIST RESTRAINTS IN PLACE ORDERED. VERONICA MIDLINE WITHOUT SIGNS OF COMPLICATIONS. CHOU CATHETER PATENT AND IN PLACE DRAINING CLEAR YELLOW URINE. DVT PUMPS, SAFETY MEASURES IN PLACE, CALL LIGHT WITHIN REACH, ENDORSED TO RN STEPHANY FOR CONTINUATION OF CARE.
[2019-10-21] MEDS: FENTANYL CITRATE IV 1,250 MCG in IV NS 0.9% 225 ML IV PRN (07:39)
[2019-10-21 08:27] LABS: ABG BASE EXCESS -3.3 mmol/L; ABG OXYGEN SATURATION 97.3 % (92.0-98.5); ABG PCO2 37.6 mmHg (35.0-45.0); ABG PH 7.376 (7.350-7.450); ABG PO2 100.2 mmHg (75.0-100.0); COHb 0.3 % (0.5-1.5); MetHb 0.3 % (0.0-1.5); O2Hb 96.7 % (94.0-97.0); PEEP,BG 12 cm H2O; SITE, ABG Right Radial; VENT MODE, BG AC 50%; VT, ABG 500 mL
[2019-10-21] MEDS: MIDAZOLAM HCL 100 MG in IV NS 0.9% 80 ML IV PRN ×2 (08:35→22:03)
[2019-10-21] MEDS: ALLOPURINOL 100 MG TABLET PO SCH (08:51)
[2019-10-21] MEDS: SENNOSIDES 8.6 MG TABLET GT SCH (08:51)
[2019-10-21] MEDS: PANTOPRAZOLE 40 MG/PACK PACK GT SCH (08:51)
[2019-10-21] MEDS: CHOLECALCIFEROL (VITAMIN D 3) 400 UNIT TABLET PO SCH (08:51)
[2019-10-21] MEDS: DEXAMETHASONE SOD PHOSPHATE 10 MG/ML VIAL IV SCH (08:52)
[2019-10-21] MEDS: INSULIN GLARGINE, 100 UNIT/ML CARTRIDGE SQ SCH (08:54)
[2019-10-21] MEDS: FUROSEMIDE 20 MG/2 ML VIAL IV SCH (09:50)
--- NOTE | 2019-10-21 10:19 | NUR ---
Endotracheal tube advanced to 23cm per Dr. Menendez. Addendum: 10/21/19 at 1020 by ANN TREVINO RT Amended: Links added.
[2019-10-21] MEDS: FENTANYL CITRAT IV 2,500 MCG in IV NS 0.9% 200 ML IV PRN (14:22)
--- NOTE | 2019-10-21 18:48 | NUR ---
ICU/RN Closing notes Pt is sedated with maxed out doses of Fentanyl and Versed drips. ETT to vent on AC mode as ordered, dec PEEP down to +10, FiO2 of 55%, tolerating well. Per Dr. Menendez keep O2 sat >94%. TF of Glucerna at 50 cc/her tolerating well, no residuals noted. Diuresed of about 1500 cc with the lasix IV daily. No skin breakdown noted except for the bruises on both hands. Kept bilat wrist restraints. Will give report to overnight cashier for AUSTEN
--- NOTE | 2019-10-21 19:05 | NUR ---
RN OPENING NOTE PATIENT IN BED SEDATED.ETT/VENT SETTING PER MD ORDER, ISOLATION PRECAUTIONS IN PLACE FOR COVID 19 (+).VERONICA MIDLINE PATENT WITH ONGOING FENTANYL AND VERSED TITRATE PER PROTOCOL INFUSING WELL. PT IS SR ON THE MONITOR. VITAL SIGNS WNL. RESTRAINTS IN PLACE ORDERED. CHOU CATHETER PATENT AND IN PLACE DRAINING CLEAR YELLOW URINE. GT FEEDING RUNNING ORDERED. PLACEMENT VERIFIED VIA AUSCULTATION. NO RESIDUAL NOTED. NO SOB OR DISCOMFORT NOTED. TOLERATING VENT SETTINGS WELL. SAFETY MEASURES IN PLACE, WILL MONITOR PT CLOSELY.
[2019-10-21] MEDS: ATORVASTATIN 10 MG TABLET PO SCH (21:34)
[2019-10-22] VITALS (24 sets, daily range): BP systolic 112–148; BP diastolic 49–73
[2019-10-22] MEDS: FENTANYL CITRAT IV 2,500 MCG in IV NS 0.9% 200 ML IV PRN ×2 (01:45→07:55)
[2019-10-22] MEDS: BLOOD SUGAR DIAGNOSTIC 1 EACH STRIP IN SCH ×3 (05:25→18:01)
[2019-10-22] MEDS: INSULIN REGULAR, HUMAN 100 UNIT/ML 3 ML VIAL SQ PRN ×3 (05:26→18:00)
[2019-10-22] MEDS: MIDAZOLAM HCL 100 MG in IV NS 0.9% 80 ML IV PRN (07:41)
[2019-10-22 08:14] LABS: ABG BASE EXCESS -3.1 mmol/L; ABG OXYGEN SATURATION 95.2 % (92.0-98.5); ABG PCO2 38.8 mmHg (35.0-45.0); ABG PH 7.369 (7.350-7.450); ABG PO2 80.3 mmHg (75.0-100.0); AaDO2 232.6 mmHg; COHb 0.3 % (0.5-1.5); MetHb 0.3 % (0.0-1.5); O2Hb 94.6 % (94.0-97.0); SITE, ABG Right Radial; VENT MODE, BG AC 22 550 50% +10
[2019-10-22] MEDS: INSULIN GLARGINE, 100 UNIT/ML CARTRIDGE SQ SCH (09:00)
[2019-10-22] MEDS: DEXAMETHASONE SOD PHOSPHATE 10 MG/ML VIAL IV SCH (09:17)
[2019-10-22] MEDS: SENNOSIDES 8.6 MG TABLET GT SCH (09:18)
[2019-10-22] MEDS: ALLOPURINOL 100 MG TABLET PO SCH (09:18)
[2019-10-22] MEDS: PANTOPRAZOLE 40 MG/PACK PACK GT SCH (09:18)
[2019-10-22] MEDS: CHOLECALCIFEROL (VITAMIN D 3) 400 UNIT TABLET PO SCH (09:18)
[2019-10-22] MEDS: FUROSEMIDE 20 MG/2 ML VIAL IV SCH (09:18)
[2019-10-22 09:53] LABS: BASOPHILS % (AUTO) 0.3 % (0.0-2.0); EOSINOPHILS % (AUTO) 0.6 % (0.0-6.0); HEMATOCRIT 28 % (39-51); HEMOGLOBIN 9.2 g/dL (13.5-17.5); LYMPHOCYTES # (AUTO) 0.5 /CMM (0.8-4.8); MEAN CORPUSCULAR HGB CONC 32 g/dl (31.0-36.0); MEAN CORPUSCULAR VOLUME 89 fL (80-96); MONOCYTES # (AUTO) 0.5 /CMM (0.1-1.30); MONOCYTES % (AUTO) 4.6 % (2.0-12.0); NEUTROPHILS # (AUTO) 9.6 /CMM (1.8-8.9); NEUTROPHILS % (AUTO) 89.5 % (43.0-81.0); PLATELET COUNT (AUTO) 282 /CMM (150-450); RED BLOOD CELL COUNT(AUTO) 3.18 MIL/uL (4.5-6.0); WHITE BLOOD COUNT (AUTO) 10.7 K/uL (4.3-11.0)
[2019-10-22 09:59] LABS: ALANINE AMINOTRANSFERASE 56 U/L (12-78); ALBUMIN 2.1 g/dL (3.4-5.0); ALKALINE PHOSPHATASE 76 U/L (46-116); ASPARTATE AMINOTRANSFERASE 36 U/L (15-37); BILIRUBIN,TOTAL 0.2 mg/dL (0.2-1.0); CALCIUM, SERUM 8.5 mg/dL (8.5-10.1); CARBON DIOXIDE 27 mmol/L (21-32); CHLORIDE 117 mmol/L (98-107); CREATININE 1.6 mg/dL (0.6-1.3); GLUCOSE 129 mg/dL (74-106); MAGNESIUM 2.4 mg/dL (1.8-2.4); PHOSPHORUS 5.6 mg/dL (2.5-4.9); POTASSIUM 5.2 mmol/L (3.5-5.1); SODIUM SERUM 152 mmol/L (136-145); TOTAL PROTEIN, SERUM 5.8 g/dL (6.4-8.2); UREA NITROGEN, BLOOD 73 mg/dL (7-18)
--- NOTE | 2019-10-22 14:46 | NUR ---
Per Dr. Jackson keep SPO2 90-92%
[2019-10-22] MEDS: IV D5W 1,000 ML IV PRN (15:00)
[2019-10-22] MEDS: GLUCERNA 1.2 1,000 ML BOTTLE NG PRN (18:01)
--- NOTE | 2019-10-22 19:30 | NUR ---
RN NOTES RECEIVED PATIENT IN BED SEDATED. RESPIRATION EVEN NON LABORED. ISOLATION PRECAUTIONS IN PLACE. VITAL SIGNS WNL. OGT IN PLACE GLUCERNA 1.2 RUNNING AT 50ML/HR TOLERATING WELL. IV'S INTACT PATENT FLUSHES WELL WITHOUT ANY COMPLICATIONS. BUE SOFT RESTRAINS IN PLACE FOR SAFETY RELEASED AND CHECKED FOR CIRCULATION AND PULSE. F/C INTACT YELLOW URINE RUNNING TO GRAVITY. ALL SAFETY MEASURES IN PLACE, SIDE RAILS UP, CALL LIGHT WITHIN REACH. WILL CONT TO MONITOR FOR [place].
[2019-10-22] MEDS: FENTANYL CITRAT IV PRN (20:54)
[2019-10-22] MEDS: D5W IV PRN ×2 (20:54→21:02)
[2019-10-22] MEDS: MIDAZOLAM HCL IV PRN (21:02)
[2019-10-22] MEDS: METOPROLOL TARTRATE 25 MG TABLET NG SCH (21:13)
[2019-10-22] MEDS: ATORVASTATIN 10 MG TABLET PO SCH (21:14)
[2019-10-23] VITALS (24 sets, daily range): BP systolic 115–146; BP diastolic 50–70
[2019-10-23] MEDS: BLOOD SUGAR DIAGNOSTIC 1 EACH STRIP IN SCH ×4 (02:00→17:39)
[2019-10-23] MEDS: INSULIN REGULAR, HUMAN 100 UNIT/ML 3 ML VIAL SQ PRN ×4 (02:08→17:39)
--- NOTE | 2019-10-23 04:00 | NUR ---
BED BATH GIVEN PATIENT TOLERATED WELL.
[2019-10-23 04:39] LABS: BASOPHILS # (AUTO) 0.1 /CMM (0.0-0.2); BASOPHILS % (AUTO) 0.4 % (0.0-2.0); EOSINOPHILS % (AUTO) 0.5 % (0.0-6.0); HEMATOCRIT 26 % (39-51); HEMOGLOBIN 8.3 g/dL (13.5-17.5); LYMPHOCYTES # (AUTO) 0.6 /CMM (0.8-4.8); LYMPHOCYTES % (AUTO) 4.2 % (20.0-44.0); MEAN CORPUSCULAR HGB CONC 32 g/dl (31.0-36.0); MEAN CORPUSCULAR VOLUME 92 fL (80-96); MONOCYTES # (AUTO) 0.7 /CMM (0.1-1.30); MONOCYTES % (AUTO) 5.2 % (2.0-12.0); NEUTROPHILS # (AUTO) 11.9 /CMM (1.8-8.9); NEUTROPHILS % (AUTO) 89.7 % (43.0-81.0); PLATELET COUNT (AUTO) 238 /CMM (150-450); RED BLOOD CELL COUNT(AUTO) 2.88 MIL/uL (4.5-6.0); WHITE BLOOD COUNT (AUTO) 13.3 K/uL (4.3-11.0)
[2019-10-23 04:58] LABS: ALANINE AMINOTRANSFERASE 41 U/L (12-78); ALKALINE PHOSPHATASE 87 U/L (46-116); ASPARTATE AMINOTRANSFERASE 29 U/L (15-37); BILIRUBIN,TOTAL 0.3 mg/dL (0.2-1.0); CALCIUM, SERUM 8.5 mg/dL (8.5-10.1); CARBON DIOXIDE 26 mmol/L (21-32); CHLORIDE 116 mmol/L (98-107); GLUCOSE 183 mg/dL (74-106); MAGNESIUM 2.5 mg/dL (1.8-2.4); PHOSPHORUS 6.2 mg/dL (2.5-4.9); POTASSIUM 5.5 mmol/L (3.5-5.1); SODIUM SERUM 149 mmol/L (136-145); TOTAL PROTEIN, SERUM 5.7 g/dL (6.4-8.2)
[2019-10-23 05:03] LABS: UREA NITROGEN, BLOOD 86 mg/dL (7-18)
--- NOTE | 2019-10-23 07:00 | NUR ---
RN NOTES RECEIVED PATIENT ON BED SEDATED. ON VERSED AT 7MG/HR AND FENTANYL AT 21CC/HR AT THIS TIME, VSS STABLE , O2 SAT WNL, ON TELE SR HR IN 90'S , ON ISOLATION PRECAUTIONS , OGT IN PLACE GLUCERNA 1.2 RUNNING AT 50ML/HR TOLERATING WELL. L UPPER ARM IV AND L HAND IV SITES CLEAN, DRY AND INTACT, CHOU DRINING TO GRAVITY , ELIE. WRIST SOFT RESTRAINS IN PLACE FOR SAFETY RELEASED AND CHECKED FOR CIRCULATION AND PULSE. SR UP X3, CALL LIGHT WITHIN EASY RECH, BED LOCKED AND IN LOWEST POSITION, WILL CONT TO MONITOR.
--- NOTE | 2019-10-23 07:03 | NUR ---
RN NOTES NO CHANGES NOTED DURING SHIFT. NO S/S OF ACUTE DISTRESS NOTED. VENT SETTING TOLERATING WELL ORDERED. REMAINS ON VERSED AND FENTANYL DRIP AND D5W RUNNING AT 50ML/HR TOLERATING WELL. VITAL SIGNS WNL. OGT IN PLACE GLUCERNA 1.2 RUNNING AT 50ML/HR TOLERATING WELL. IV'S INTACT PATENT FLUSHES WELL WITHOUT ANY COMPILATIONS. BUE SOFT RESTRAINS IN PLACE FOR SAFETY RELEASED AND CHECKED FOR CIRCULATION AND PULSE. F/C INTACT YELLOW URINE RUNNING TO GRAVITY. ALL SAFETY MEASURES IN PLACE, SIDE RAILS UP, CALL LIGHT WITHIN REACH. WILL ENDORSE TO AM NURSE FOR AUSTEN.
[2019-10-23] MEDS: CHOLECALCIFEROL (VITAMIN D 3) 400 UNIT TABLET PO SCH (08:46)
[2019-10-23] MEDS: PANTOPRAZOLE 40 MG/PACK PACK GT SCH (08:46)
[2019-10-23] MEDS: FUROSEMIDE 20 MG/2 ML VIAL IV SCH (08:46)
[2019-10-23] MEDS: ALLOPURINOL 100 MG TABLET PO SCH (08:46)
[2019-10-23] MEDS: DEXAMETHASONE SOD PHOSPHATE 10 MG/ML VIAL IV SCH (08:47)
[2019-10-23] MEDS: METOPROLOL TARTRATE 25 MG TABLET NG SCH ×2 (08:47→20:06)
[2019-10-23] MEDS: SENNOSIDES 8.6 MG TABLET GT SCH (08:47)
[2019-10-23] MEDS: INSULIN GLARGINE, 100 UNIT/ML CARTRIDGE SQ SCH (08:49)
--- NOTE | 2019-10-23 09:00 | NUR ---
RN NOTES SMALL AMOUNT OF TUBE FEEDING CONTENT NOTED DROOLING AT THE SIDE OF THE PT'S MOUTH, 30 CC TF RESIDUAL NOTED, TF TURNED OFF AT THIS TIME, WILL INFORM MD .CONTINUE TO MONITOR .
[2019-10-23] MEDS: D5W IV PRN ×5 (09:45→23:00)
[2019-10-23] MEDS: FENTANYL CITRAT IV PRN ×3 (09:45→23:00)
[2019-10-23] MEDS: MIDAZOLAM HCL IV PRN ×2 (09:46→22:09)
[2019-10-23] MEDS: IV D5W 1,000 ML IV PRN (10:30)
[2019-10-23] MEDS ORDERED: FUROSEMIDE 20 MG/2 ML VIAL IV SCH (13:00)
[2019-10-23] MEDS ORDERED: SODIUM POLYSTYRENE SULFONATE 15 G/60 ML BOTTLE NG ONE (13:00)
[2019-10-23] MEDS: FUROSEMIDE 40 MG/4 ML VIAL IV SCH (13:20)
--- NOTE | 2019-10-23 14:00 | NUR ---
RN NOTES DR RODRIGUEZ NOTIFIED REGARDING LAB RESULTS AND TUBE FEEDING , NEW ORDER RECEIVED.CONTINUE TO MONITOR .
--- NOTE | 2019-10-23 14:09 | NUR ---
RN NOTES TF RESTARTED AT 30CC/HR , NO RESIDUAL NOTED , CONTINUE TO MONITOR .
[2019-10-23 17:13] LABS: CALCIUM, SERUM 8.6 mg/dL (8.5-10.1); CARBON DIOXIDE 27 mmol/L (21-32); CHLORIDE 112 mmol/L (98-107); CREATININE 2.1 mg/dL (0.6-1.3); GLUCOSE 300 mg/dL (74-106); POTASSIUM 5.5 mmol/L (3.5-5.1); SODIUM SERUM 146 mmol/L (136-145)
[2019-10-23 17:17] LABS: UREA NITROGEN, BLOOD 94 mg/dL (7-18)
[2019-10-23] MEDS: NEPRO 1,000 ML BOTTLE GT PRN (17:46)
--- NOTE | 2019-10-23 18:27 | NUR ---
RN NOTES PT REMAINS INTUBATED AND SEDATED, ON FENTANYL AT 100 MCG/HR , VERSED AT 7MG/HR , D5 W T 50 CC/HR RUNNING , ON TELE SR -ST , TOLERATING CURRENT , TF AT 35 CC /HR RUNNING , NO RESIDUAL, ALL SAFETY MEASURES IN PLACE, SIDE RAILS UP x3, CALL LIGHT WITHIN EASY REACH. WILL ENDORSE TO FISH LIVER SORTER NURSE FOR CONTINUITY OF CARE.
--- NOTE | 2019-10-23 19:30 | NUR ---
RN NOTES RECEIVED PATIENT IN BED INTUBATED AND SEDATED CONTINUES ON FENTANYL AND VERSED DRIP, PER TOLERATING WELL. VENT SETTING TOLERATING WELL ORDERED. RESPIRATION EVEN NON LABORED NO DISTRESS NOTED. NO S/S OF PAIN OR DISCOMFORT NOTED. TELE MONITOR READING SR. OGT IN PLACE NEPHRO RUNNING @35ML/HR NO RESIDUAL NOTED. IV'S INTACT PATENT AND FLUSHES WELL. BILATERAL SOFT HAND RESTRAINS IN PLACE FOR SAFETY RELEASED AND CHECKED FOR CIRCULATION AND PULSE. F/C INTACT, YELLOW URINE RUNNING VIA GRAVITY. ALL SAFETY MEASURES IN PLACE, SIDE RAILS UP. CALL LIGHT WITHIN REACH. WILL CONT TO MONITOR FOR AUSTEN.
[2019-10-23] MEDS: ATORVASTATIN 10 MG TABLET PO SCH (21:26)
[2019-10-24] VITALS (24 sets, daily range): BP systolic 109–147; BP diastolic 45–66
[2019-10-24] MEDS: BLOOD SUGAR DIAGNOSTIC 1 EACH STRIP IN SCH ×4 (00:39→17:25)
[2019-10-24] MEDS: INSULIN REGULAR, HUMAN 100 UNIT/ML 3 ML VIAL SQ PRN ×4 (01:02→17:25)
--- NOTE | 2019-10-24 04:00 | NUR ---
BED BATH GIVEN PATIENT TOLERATED WELL.
[2019-10-24] MEDS: IV D5W 1,000 ML IV PRN (05:27)
--- NOTE | 2019-10-24 06:20 | NUR ---
RECEIVED CALLED FROM RADIOLOGY CHIO FRANZ ORDER TO ADVANCE THE ENDOTRACHEAL TUBE 3CM. CALLED RT DE JESUS AT BED SITE. Addendum: 10/24/19 at 0655 by DREW ALEMAN RN PARTRIDGE FARMER XAVI WAN NOTIFIED AND GAVE ORDER TO ADVANCE ETT 3CM.
--- NOTE | 2019-10-24 06:53 | NUR ---
ETT ADVANCED BY 3CM FROM OBSERVED 22CM TO 25CM Addendum: 10/24/19 at 0653 by NEAL BEAVERS Amended: Links added.
--- NOTE | 2019-10-24 07:08 | NUR ---
RN NOTES NO CHANGES NOTED DURING SHIFT. NO S/S OF ACUTE DISTRESS NOTED. VENT SETTING TOLERATING WELL ORDERED. REMAINS ON VERSED AND FENTANYL DRIP AND D5W RUNNING AT 50ML/HR TOLERATING WELL. VITAL SIGNS WNL. IV'S INTACT PATENT FLUSHES WELL WITHOUT ANY COMPILATIONS. BUE SOFT RESTRAINS IN PLACE FOR SAFETY RELEASED AND CHECKED FOR CIRCULATION AND PULSE. F/C INTACT YELLOW URINE RUNNING TO GRAVITY. ALL SAFETY MEASURES IN PLACE, SIDE RAILS UP, CALL LIGHT WITHIN REACH. ENDORSE TO AM NURSE FOR AUSTEN.
--- NOTE | 2019-10-24 07:08 | NUR ---
RN NOTES RECEIVED PATIENT ON BED SEDATED. ON VERSED AT 7MG/HR AND FENTANYL 100 MCG/HR AT THIS TIME, VSS STABLE , O2 91-92% ON TELE SR HR IN 90'S , ON ISOLATION PRECAUTIONS , OGT IN PLACE NEPRO RUNNING AT 35 ML/HR TOLERATING WELL. L UPPER ARM IV AND L HAND IV SITES CLEAN, DRY AND INTACT, CHOU DRINING TO GRAVITY , ELIE. WRIST SOFT RESTRAINS IN PLACE FOR SAFETY RELEASED AND CHECKED FOR CIRCULATION AND PULSES. SR UP X3, CALL LIGHT WITHIN EASY RECH, BED LOCKED AND IN LOWEST POSITION, WILL CONT TO MONITOR.
[2019-10-24] MEDS: METOPROLOL TARTRATE 25 MG TABLET NG SCH ×2 (08:16→20:11)
[2019-10-24] MEDS: CHOLECALCIFEROL (VITAMIN D 3) 400 UNIT TABLET PO SCH (08:16)
[2019-10-24] MEDS: ALLOPURINOL 100 MG TABLET PO SCH (08:16)
[2019-10-24] MEDS: FUROSEMIDE 40 MG/4 ML VIAL IV SCH (08:16)
[2019-10-24] MEDS: PANTOPRAZOLE 40 MG/PACK PACK GT SCH (08:16)
[2019-10-24] MEDS: SENNOSIDES 8.6 MG TABLET GT SCH (08:17)
[2019-10-24] MEDS ORDERED: INSULIN GLARGINE, 100 UNIT/ML CARTRIDGE SQ SCH (09:00)
--- NOTE | 2019-10-24 09:34 | NUR ---
RN NOTES NO SEDATION VACATION NEED TODAY PER DR VELASQUEZ ORDER .
[2019-10-24] MEDS: FENTANYL CITRAT IV PRN ×2 (10:03→22:13)
[2019-10-24] MEDS: D5W IV PRN ×4 (10:03→22:13)
[2019-10-24] MEDS: MIDAZOLAM HCL IV PRN ×2 (10:04→22:09)
[2019-10-24 11:17] LABS: BASOPHILS % (AUTO) 0.2 % (0.0-2.0); EOSINOPHILS % (AUTO) 0.2 % (0.0-6.0); HEMATOCRIT 26 % (39-51); HEMOGLOBIN 8.2 g/dL (13.5-17.5); LYMPHOCYTES # (AUTO) 0.4 /CMM (0.8-4.8); LYMPHOCYTES % (AUTO) 3.4 % (20.0-44.0); MEAN CORPUSCULAR HGB CONC 32 g/dl (31.0-36.0); MEAN CORPUSCULAR VOLUME 90 fL (80-96); MONOCYTES # (AUTO) 0.6 /CMM (0.1-1.30); MONOCYTES % (AUTO) 5.4 % (2.0-12.0); NEUTROPHILS # (AUTO) 10.5 /CMM (1.8-8.9); NEUTROPHILS % (AUTO) 90.8 % (43.0-81.0); PLATELET COUNT (AUTO) 205 /CMM (150-450); WHITE BLOOD COUNT (AUTO) 11.6 K/uL (4.3-11.0)
[2019-10-24 11:34] LABS: ALANINE AMINOTRANSFERASE 34 U/L (12-78); ALBUMIN 1.9 g/dL (3.4-5.0); ALKALINE PHOSPHATASE 85 U/L (46-116); ASPARTATE AMINOTRANSFERASE 20 U/L (15-37); BILIRUBIN,TOTAL 0.2 mg/dL (0.2-1.0); CALCIUM, SERUM 8.5 mg/dL (8.5-10.1); CARBON DIOXIDE 29 mmol/L (21-32); CHLORIDE 109 mmol/L (98-107); CREATININE 1.6 mg/dL (0.6-1.3); GLUCOSE 237 mg/dL (74-106); MAGNESIUM 2.3 mg/dL (1.8-2.4); POTASSIUM 4.6 mmol/L (3.5-5.1); SODIUM SERUM 144 mmol/L (136-145); TOTAL PROTEIN, SERUM 5.6 g/dL (6.4-8.2)
--- NOTE | 2019-10-24 12:00 | NUR ---
RN NOTES ET TUBE SUCTIONING DONE, VSS STABLE , CONTINUE TO MONITOR .
[2019-10-24 12:09] LABS: UREA NITROGEN, BLOOD 87 mg/dL (7-18)
--- NOTE | 2019-10-24 15:00 | NUR ---
RN NOTES HR IN 110 , O2 SAT 82%, DR VELASQUEZ NOTIFIED , NEW ORDER RECEIVED . CONTINUE TO MONITOR .
[2019-10-24] MEDS: Z GUARD REMEDY 2 OZ OINT TP SCH ×2 (16:40→20:25)
--- NOTE | 2019-10-24 18:23 | NUR ---
RN NOTES PT REMAINS ORALLY INTUBATED AND SEDATED , ON VERSED AND FENTANYL DRIP , ON TELE SR -ST, PT IS ON VENT, TOLERATING , FIO2 AT 50% WELL , TF AT 35CC/HR RUNNING , L UPPER ARM PICC LINE SITE CLEAN ,DRY AND INTACT, SR UP x3, CALL LIGHT WITHIN EASY REACH, BED LOCKED AND IN LOWEST POSITION, WILL ENDORSE TO CYBER OPS PLANNER NURSE FOR CONTINUITY OF CARE .
--- NOTE | 2019-10-24 19:30 | NUR ---
RN NOTES RECEIVED PATIENT IN BED SEDATED, CONTINUES ON VERSED AND FENTANYL DRIP TOLERATING WELL NO CHANGES IN DOSE. VENT SETTING TOLERATING WELL ORDERED SATURATION IS 92%-93%. ON TELE MONITOR READING SR IN 110. CONTINUES ON ISOLATION PRECAUTIONS. VITAL SIGNS WNL. OGT IN PLACE NEPRO RUNNING AT 35ML/HR. VERONICA ML, LT HAND IV SITES CLEAN DRY AND INTACT. F/C INTACT URINE RUNNING TO GRAVITY. BUE SOFT RESTRAINS IN PLACE FOR SAFETY RELEASED AND CHECKED FOR CIRCULATION AND PULSE. SAFETY MEASURES I PLACE, SIDE RAILS UP. CALL LIGHT WITHIN REACH. WILL CONT TO MONITOR FOR AUSTEN.
[2019-10-24] MEDS: ATORVASTATIN 10 MG TABLET PO SCH (21:06)
[2019-10-24] MEDS: INSULIN GLARGINE, 100 UNIT/ML CARTRIDGE SQ SCH (22:02)
[2019-10-25] VITALS (24 sets, daily range): BP systolic 95–159; BP diastolic 43–79
[2019-10-25] MEDS: BLOOD SUGAR DIAGNOSTIC 1 EACH STRIP IN SCH ×4 (00:16→17:56)
[2019-10-25] MEDS: INSULIN REGULAR, HUMAN 100 UNIT/ML 3 ML VIAL SQ PRN ×4 (00:18→17:53)
[2019-10-25] MEDS: IV D5W 1,000 ML IV PRN ×2 (00:30→17:36)
[2019-10-25] MEDS: NEPRO 1,000 ML BOTTLE GT PRN (00:31)
[2019-10-25 04:25] LABS: BASOPHILS % (AUTO) 0.3 % (0.0-2.0); EOSINOPHILS % (AUTO) 0.4 % (0.0-6.0); HEMATOCRIT 24 % (39-51); LYMPHOCYTES # (AUTO) 0.6 /CMM (0.8-4.8); MEAN CORPUSCULAR HGB CONC 33 g/dl (31.0-36.0); MEAN CORPUSCULAR VOLUME 90 fL (80-96); MONOCYTES # (AUTO) 0.7 /CMM (0.1-1.30); MONOCYTES % (AUTO) 6.8 % (2.0-12.0); NEUTROPHILS # (AUTO) 9.6 /CMM (1.8-8.9); NEUTROPHILS % (AUTO) 87.5 % (43.0-81.0); PLATELET COUNT (AUTO) 169 /CMM (150-450); RED BLOOD CELL COUNT(AUTO) 2.73 MIL/uL (4.5-6.0); WHITE BLOOD COUNT (AUTO) 10.9 K/uL (4.3-11.0)
[2019-10-25 04:35] LABS: ALANINE AMINOTRANSFERASE 29 U/L (12-78); ALBUMIN 1.8 g/dL (3.4-5.0); ALKALINE PHOSPHATASE 86 U/L (46-116); ASPARTATE AMINOTRANSFERASE 22 U/L (15-37); BILIRUBIN,TOTAL 0.2 mg/dL (0.2-1.0); CALCIUM, SERUM 8.7 mg/dL (8.5-10.1); CARBON DIOXIDE 28 mmol/L (21-32); CHLORIDE 107 mmol/L (98-107); CREATININE 1.8 mg/dL (0.6-1.3); GLUCOSE 188 mg/dL (74-106); MAGNESIUM 2.3 mg/dL (1.8-2.4); PHOSPHORUS 6.1 mg/dL (2.5-4.9); POTASSIUM 4.3 mmol/L (3.5-5.1); SODIUM SERUM 143 mmol/L (136-145); TOTAL PROTEIN, SERUM 5.5 g/dL (6.4-8.2)
[2019-10-25 04:44] LABS: UREA NITROGEN, BLOOD 96 mg/dL (7-18)
--- NOTE | 2019-10-25 07:14 | NUR ---
RN NOTES NO CHANGES NOTED REMAINS SEDATED NO CHANGES IN DRIP DOSE. VENT SETTING TOLERATING WELL. NO S/S OF ACUTE DISTRESS NOTED. OGT IN PLACE NEPHRO RUNNING AT 35ML/HR. VERONICA ML, LT HAND IV SITES CLEAN DRY AND INTACT. F/C INTACT URINE RUNNING TO GRAVITY. BUE SOFT RESTRAINS IN PLACE FOR SAFETY RELEASED AND CHECKED FOR CIRCULATION AND PULSE. SAFETY MEASURES I PLACE, SIDE RAILS UP. CALL LIGHT WITHIN REACH. WILL ENDORSE TO AM NURSE FOR AUSTEN.
--- NOTE | 2019-10-25 07:20 | NUR ---
RN OPENING NOTES RECEIVED PATIENT SEDATED. NO S/S OF ACUTE DISTRESS NOTED. OGT IN PLACE NEPHRO RUNNING AT 35ML/HR. VERONICA ML, LT HAND IV SITES CLEAN DRY AND INTACT. F/C INTACT URINE RUNNING TO GRAVITY. BUE SOFT RESTRAINS IN PLACE FOR SAFETY RELEASED AND CHECKED FOR CIRCULATION AND PULSE. SAFETY MEASURES IN PLACE, BED LOCKED AND IN LOWEST POSITION ,SIDE RAILS UP. CALL LIGHT WITHIN REACH. WILL CONTINUE TO MONITOR.
[2019-10-25] MEDS: ALLOPURINOL 100 MG TABLET PO SCH (08:53)
[2019-10-25] MEDS: SENNOSIDES 8.6 MG TABLET GT SCH (08:53)
[2019-10-25] MEDS: METOPROLOL TARTRATE 25 MG TABLET NG SCH ×2 (08:53→21:42)
[2019-10-25] MEDS: CHOLECALCIFEROL (VITAMIN D 3) 400 UNIT TABLET PO SCH (08:53)
[2019-10-25] MEDS: PANTOPRAZOLE 40 MG/PACK PACK GT SCH (08:54)
[2019-10-25] MEDS: FUROSEMIDE 40 MG/4 ML VIAL IV SCH (09:00)
--- NOTE | 2019-10-25 09:15 | NUR ---
RN NOTES LASIX NONADMIN DUE TO BLOOD PRESSURE 108/43.
[2019-10-25] MEDS: INSULIN GLARGINE, 100 UNIT/ML CARTRIDGE SQ SCH ×2 (09:49→22:16)
[2019-10-25] MEDS: Z GUARD REMEDY 2 OZ OINT TP SCH ×2 (09:55→21:00)
[2019-10-25] MEDS: MIDAZOLAM HCL IV PRN ×2 (10:59→21:13)
[2019-10-25] MEDS: D5W IV PRN ×4 (10:59→21:14)
[2019-10-25] MEDS: FENTANYL CITRAT IV PRN ×2 (11:05→21:14)
--- NOTE | 2019-10-25 18:00 | NUR ---
RN NOTES DR. RODRIGUEZ CALLED AND FACE-TIME PATIENT. IN ADDITION, MD REQUESTED INSULIN LANTUS CHANGE TO 24UNITS Q12. ORDER READ BACK AND CARRIED OUT.
--- NOTE | 2019-10-25 18:53 | NUR ---
RN CLOSING NOTES WILL ENDORSED TO PM NURSE FOR AUSTEN. PATIENT IS IN BED SEDATED. NO S/S OF ACUTE DISTRESS NOTED. TOLERATING VENT SETTINGS. OGT IN PLACE NEPHRO RUNNING AT 35ML/HR. VERONICA ML, LT HAND IV SITES CLEAN DRY AND INTACT. F/C INTACT URINE RUNNING TO GRAVITY. BUE SOFT RESTRAINS IN PLACE FOR SAFETY RELEASED AND CHECKED FOR CIRCULATION AND PULSE. SAFETY MEASURES IN PLACE, BED LOCKED AND IN LOWEST POSITION ,SIDE RAILS UP. CALL LIGHT WITHIN REACH.
--- NOTE | 2019-10-25 19:30 | NUR ---
FARM SUPERVISOR INITIAL SHIFT NOTES RECEIVED PATIENT IN BED, ORALLY INTUBATED, ON MECHANICAL VENTILATION. ETT 7.5/25CM @ LIP LINE, SETTINGS: AC22. TV 500, FIO2 50%, PEEP +5. PATIENT SEDATED ON VERSED DRIP @ 6MG/HR, FENTANYL DRIP @ 1.4223MCG/KG/HR OR 10 ML/HR AND D5W @ 50ML/HR VIA ADRIENNE MIDLINE, WHICH IS PATENT AND INTACT, FLUSHED WITH NS. NO VENOUS RETURN NOTED, BUT SITE FLUSHES WELL AND IS FREE FROM ANY SIGNS AND SYMPTOMS OF INFILTRATION OR PHLEBITIS. OGT PATENT AND INTACT, TUBE FEEDING @ 35ML/HR, 10 ML GASTRIC RESIDUAL, CAMACHO/BROWN COLORED OUTPUT. ISOLATION PRECAUTIONS FOR COVID-19 OBSERVED. HOB KEPT ELEVATED FOR ASPIRATION PRECAUTIONS. WILL CONTINUE CLOSE MONITORING
--- NOTE | 2019-10-25 20:15 | NUR ---
ORTHOPEDIC BRACE MAKER NOTES PATIENT NOTED TO DESAT, LOW 81% SPO2. RT MIRA AT BEDSIDE, FIO2 INCREASED TO 80%, WITH SPO2 NOTED TO RISE BACK UP TO 99%. PER RT MIRA, HE WILL TRY TO TITRATE LATER ON IN SHIFT. WILL MONITOR CLOSELY
--- NOTE | 2019-10-25 20:28 | NUR ---
ARTS ADMINISTRATOR OR MANAGER NOTES CALLED PHARMACY, SPOKE TO PHARMACIST SELINA REGARDING FENTANYL AND VERSED DRIPS, BOTH WITH BUD 10/25/19 @ 2100. PER SELINA, SHE WILL MIX THE DRIPS AND SEND THEM UP SHORTLY
[2019-10-25] MEDS: ATORVASTATIN 10 MG TABLET PO SCH (21:42)
[2019-10-26] VITALS (37 sets, daily range): BP systolic 79–169; BP diastolic 33–65
[2019-10-26] MEDS: BLOOD SUGAR DIAGNOSTIC 1 EACH STRIP IN SCH ×5 (01:03→23:13)
[2019-10-26] MEDS: INSULIN REGULAR, HUMAN 100 UNIT/ML 3 ML VIAL SQ PRN ×3 (01:15→13:03)
--- NOTE | 2019-10-26 04:52 | NUR ---
RT NOTE Pt rec'd orally intubated via ETT #7.5 secured at 25CM at the lipline. Pt on [facility] vent on AC mode settings as charted. Pt shows no signs of resp distress or sob. Pt sx'd for thick mod amt of pale yellow secretions. Alarms are set and audible. ambu bag bedside. Vent plugged into red outlet. Will continue to monitor closely. Addendum: 10/26/19 at 0454 by MIRA LE RT Amended: Links added.
--- NOTE | 2019-10-26 06:00 | NUR ---
POLITICAL THEORY PROFESSOR NOTES OGT CLOGGED, ALL ATTEMPTS TO UNCLOG TUBE UNSUCCESSFUL. OGT REMOVED, NEW OGT INSERTED, PLACEMENT CONFIRMED WITH AUSCULTATION, GASTRIC CONTENTS ASPIRATED, PLACEMENT CONFIRMED WITH CHARGE NURSE INNA.
--- NOTE | 2019-10-26 07:50 | NUR ---
RN OPENING NOTES RECEIVED PATIENT RESTING IN BED, SEDATED ON VERSED AND FENTANYL DRIP. PATIENT IS ON MECHANICAL VENTILATOR WITH SETTINGS ORDERED. TOLERATING WELL, O2 SATURATION AT 96%. PER DR. RODRIGUEZ, TRY TO KEEP O2 SATURATION BETWEEN 90-92%, UNABLE TO DO AT THE MOMENT DUE TO PATIENT DESATURATING WITH LOWER VENT SETTINGS. WILL ATTEMPT AGAIN TODAY. ON TELE MONITOR WITH SR/ST NOTED. OGT IS INTACT, PATENT, AND FLUSHED WELL. PLACEMENT CHECKED VIA AUSCULTATION. CHOU CATHETER IS INTACT, PATENT, DRAINING URINE. VERONICA ML IS INTACT, PATENT, AND FLUSHED WELL. NO SIGNS OF INFECTION NOTED. SAFETY MAINTAINED, CALL LIGHT WITHIN REACH, WILL CONTINUE TO MONITOR CLOSELY.
[2019-10-26 08:19] LABS: ABG BASE EXCESS 0.4 mmol/L; ABG OXYGEN SATURATION 94.1 % (92.0-98.5); ABG PCO2 41.2 mmHg (35.0-45.0); ABG PH 7.404 (7.350-7.450); ABG PO2 74.5 mmHg (75.0-100.0); AaDO2 452.6 mmHg; COHb 0.3 % (0.5-1.5); MetHb 0.1 % (0.0-1.5); O2Hb 93.7 % (94.0-97.0); SITE, ABG Right Radial; VENT MODE, BG AC 22 500 +10 80%
[2019-10-26] MEDS: CHOLECALCIFEROL (VITAMIN D 3) 400 UNIT TABLET PO SCH (08:53)
[2019-10-26] MEDS: SENNOSIDES 8.6 MG TABLET GT SCH (08:53)
[2019-10-26] MEDS: FUROSEMIDE 40 MG/4 ML VIAL IV SCH (08:54)
[2019-10-26] MEDS: ALLOPURINOL 100 MG TABLET PO SCH (08:54)
[2019-10-26] MEDS: PANTOPRAZOLE 40 MG/PACK PACK GT SCH (08:54)
[2019-10-26] MEDS: METOPROLOL TARTRATE 25 MG TABLET NG SCH ×2 (08:54→21:00)
[2019-10-26] MEDS: Z GUARD REMEDY 2 OZ OINT TP SCH ×2 (08:56→21:11)
--- NOTE | 2019-10-26 09:15 | NUR ---
RN NOTE SPOKE TO DR JONES REGARDING PATIENT BP BEING LOW. OK TO HOLD LASIX AND METOPROLOL PER MD. SAFETY MAINTAINED, CALL LIGHT WITHIN REACH, WILL CONTINUE TO MONITOR CLOSELY
[2019-10-26] MEDS: INSULIN GLARGINE, 100 UNIT/ML CARTRIDGE SQ SCH ×2 (09:25→22:21)
[2019-10-26] MEDS: D5W IV PRN ×4 (09:31→21:56)
[2019-10-26] MEDS: FENTANYL CITRAT IV PRN ×2 (09:31→21:56)
[2019-10-26] MEDS: MIDAZOLAM HCL IV PRN ×2 (09:39→21:37)
--- NOTE | 2019-10-26 09:42 | NUR ---
RN NOTE PATIENT BP HAS BEEN RUNNING LOW, UNABLE TO BRING IT UP BY TITRATING THE VERSED. CALLED PHARMACY FOR A BAG OF LEVOPHED TO START THE PATIENT BACK ON PRESSORS TO MAINTAIN BP. DR VELASQUEZ NOTIFIED. SAFETY MAINTAINED, CALL LIGHT WITHIN REACH, WILL CONTINUE TO MONITOR CLOSELY.
[2019-10-26] MEDS: NOREPINEPHRINE 8 MG in IV NS 0.9% 242 ML IV PRN (09:56)
[2019-10-26 10:28] LABS: BASOPHILS % (AUTO) 0.3 % (0.0-2.0); EOSINOPHILS % (AUTO) 0.5 % (0.0-6.0); HEMATOCRIT 24 % (39-51); HEMOGLOBIN 7.5 g/dL (13.5-17.5); LYMPHOCYTES # (AUTO) 0.7 /CMM (0.8-4.8); MEAN CORPUSCULAR HGB CONC 31 g/dl (31.0-36.0); MEAN CORPUSCULAR VOLUME 90 fL (80-96); MONOCYTES # (AUTO) 0.7 /CMM (0.1-1.30); MONOCYTES % (AUTO) 6.3 % (2.0-12.0); NEUTROPHILS # (AUTO) 9.7 /CMM (1.8-8.9); NEUTROPHILS % (AUTO) 86.9 % (43.0-81.0); PLATELET COUNT (AUTO) 146 /CMM (150-450); RED BLOOD CELL COUNT(AUTO) 2.67 MIL/uL (4.5-6.0); WHITE BLOOD COUNT (AUTO) 11.1 K/uL (4.3-11.0)
[2019-10-26 11:56] LABS: ALANINE AMINOTRANSFERASE 28 U/L (12-78); ALBUMIN 1.7 g/dL (3.4-5.0); ALKALINE PHOSPHATASE 73 U/L (46-116); ASPARTATE AMINOTRANSFERASE 29 U/L (15-37); BILIRUBIN,TOTAL 0.2 mg/dL (0.2-1.0); CALCIUM, SERUM 8.1 mg/dL (8.5-10.1); CARBON DIOXIDE 25 mmol/L (21-32); CHLORIDE 104 mmol/L (98-107); CREATININE 3.2 mg/dL (0.6-1.3); GLUCOSE 111 mg/dL (74-106); MAGNESIUM 2.4 mg/dL (1.8-2.4); POTASSIUM 4.7 mmol/L (3.5-5.1); SODIUM SERUM 141 mmol/L (136-145); TOTAL PROTEIN, SERUM 5.7 g/dL (6.4-8.2)
[2019-10-26 12:11] LABS: PHOSPHORUS 8.1 mg/dL (2.5-4.9)
[2019-10-26 12:12] LABS: UREA NITROGEN, BLOOD 126 mg/dL (7-18)
[2019-10-26] MEDS: NEPRO 1,000 ML BOTTLE GT PRN (12:34)
[2019-10-26] MEDS: IV D5W 1,000 ML IV PRN (12:56)
[2019-10-26] MEDS: IV NS 0.9% 1,000 ML IV PRN (18:42)
--- NOTE | 2019-10-26 19:00 | NUR ---
COMPUTER EQUIPMENT INSTALLER LEVOPHED TURNED OFF; CONTINUE TO MONITOR.
--- NOTE | 2019-10-26 19:30 | NUR ---
REAL ESTATE CLOSING COORDINATOR RCD PT W/DX PNA ON ISOLATION PRECAUTIONS FOR COVID. ST ON MONITOR. TEMP 99; INITIATED COOLING MEASURES. INTUBATED 7.5 @ 25 W/VENT SETTINGS AC 22 500 65% +12. RENDERED ORAL CARE PT NOTED WITH LARGE AMOUNTS OF CAMACHO SECRETIONS. OG TUBE IN PLACE W/NEPRO @ 35 ML/HR. CHOU CATH IN PLACE DRAINING YELLOW CLEAR URINE. SACRAL WOUND NOTED W/MEPILEX IN PLACE. NS @ 100 ML/HR; VERSED 5 MG/HR; FENTANYL 100 MCG/HR TO VERONICA MIDLINE. NO BLOOD RETURN AT THIS TIME. CONTINUE TO MONITOR.
--- NOTE | 2019-10-26 19:30 | NUR ---
RN CLOSING NOTE PATIENT REMAINED SEDATED ON VERSED AND FENTANYL THROUGHOUT MY SHIFT. PATIENT WAS STARTED ON LEVOPHED NOTED EARLIER DUE TO PATIENT BP BEING LOW. TOLERATING LEVOPHED WELL, BP MAINTAINED ORDERED. PATIENT REMAINED STABLE, ALL PATIENT NEEDS MET, SCHEDULED MEDS GIVEN ON TIME, SAFETY MAINTAINED, CALL LIGHT WITHIN REACH, ENDORSED TO PM NURSE FOR AUSTEN.
[2019-10-26] MEDS: ATORVASTATIN 10 MG TABLET PO SCH (22:06)
[2019-10-27] VITALS (41 sets, daily range): BP systolic 79–134; BP diastolic 37–60
[2019-10-27 04:38] LABS: BASOPHILS # (AUTO) 0.1 /CMM (0.0-0.2); BASOPHILS % (AUTO) 0.5 % (0.0-2.0); EOSINOPHILS % (AUTO) 0.3 % (0.0-6.0); HEMATOCRIT 23 % (39-51); HEMOGLOBIN 7.3 g/dL (13.5-17.5); LYMPHOCYTES # (AUTO) 0.4 /CMM (0.8-4.8); LYMPHOCYTES % (AUTO) 3.7 % (20.0-44.0); MEAN CORPUSCULAR HGB CONC 32 g/dl (31.0-36.0); MEAN CORPUSCULAR VOLUME 89 fL (80-96); MONOCYTES # (AUTO) 0.8 /CMM (0.1-1.30); MONOCYTES % (AUTO) 7.1 % (2.0-12.0); NEUTROPHILS # (AUTO) 10.1 /CMM (1.8-8.9); NEUTROPHILS % (AUTO) 88.4 % (43.0-81.0); PLATELET COUNT (AUTO) 156 /CMM (150-450); WHITE BLOOD COUNT (AUTO) 11.4 K/uL (4.3-11.0)
[2019-10-27] MEDS: BLOOD SUGAR DIAGNOSTIC 1 EACH STRIP IN SCH ×4 (05:15→23:38)
[2019-10-27] MEDS: IV NS 0.9% 1,000 ML IV PRN ×2 (05:15→14:50)
[2019-10-27 05:21] LABS: ALANINE AMINOTRANSFERASE 25 U/L (12-78); ALBUMIN 1.6 g/dL (3.4-5.0); ALKALINE PHOSPHATASE 70 U/L (46-116); ASPARTATE AMINOTRANSFERASE 34 U/L (15-37); BILIRUBIN,TOTAL 0.3 mg/dL (0.2-1.0); CALCIUM, SERUM 7.9 mg/dL (8.5-10.1); CARBON DIOXIDE 26 mmol/L (21-32); CHLORIDE 104 mmol/L (98-107); CREATININE 3.5 mg/dL (0.6-1.3); GLUCOSE 83 mg/dL (74-106); MAGNESIUM 2.4 mg/dL (1.8-2.4); POTASSIUM 5.1 mmol/L (3.5-5.1); SODIUM SERUM 140 mmol/L (136-145); TOTAL PROTEIN, SERUM 5.7 g/dL (6.4-8.2)
[2019-10-27 05:26] LABS: UREA NITROGEN, BLOOD 134 mg/dL (7-18)
[2019-10-27 05:54] LABS: PHOSPHORUS 9.3 mg/dL (2.5-4.9)
--- NOTE | 2019-10-27 06:23 | NUR ---
BODY BUILDER APPRENTICE PT REMAINED ON VERSED 5MG/HR AND FENTANYL 100 MCG/HR PT NOTED WITH EPISODES OF TACHYPNEA. CONTINUE TO MONITOR.
--- NOTE | 2019-10-27 08:00 | NUR ---
no blood return reported/ok to use Addendum: 10/27/19 at 1429 by JEFF DEVRIES RN Amended: Links added.
--- NOTE | 2019-10-27 08:00 | NUR ---
DIRECTOR OF LAND ACQUISITION: pt is sedated with 5mg/h Versed, 1.4mcg/kg/h Fentanyl, on wrists restraints, reactive by pain stimuli, tachypneic, RR 32-35 now, slightly breathing laboring, O2sat. over 95%, FiO2 65%, peep 12, Levophed off since 7 PM, updated/said: increase sedation to protect from distress, ordered ABG, SBP over 90 now, ST 115-125, applied nose probe/T 100.5, cooling measures started, OGTF residual 400ml/stopped GTF/keep HOB over 40, BG 79, hold Lantus 24units/will s/w
[2019-10-27] MEDS: ALLOPURINOL 100 MG TABLET PO SCH (08:13)
[2019-10-27] MEDS: CHOLECALCIFEROL (VITAMIN D 3) 400 UNIT TABLET PO SCH (08:13)
[2019-10-27] MEDS: PANTOPRAZOLE 40 MG/PACK PACK GT SCH (08:13)
[2019-10-27] MEDS: SENNOSIDES 8.6 MG TABLET GT SCH (08:13)
[2019-10-27] MEDS: METOPROLOL TARTRATE 25 MG TABLET NG SCH ×2 (09:00→21:00)
[2019-10-27] MEDS: INSULIN GLARGINE, 100 UNIT/ML CARTRIDGE SQ SCH ×2 (09:00→20:41)
[2019-10-27] MEDS: Z GUARD REMEDY 2 OZ OINT TP SCH ×2 (09:41→21:31)
[2019-10-27 09:55] LABS: ABG BASE EXCESS -5.9 mmol/L; ABG OXYGEN SATURATION 93.9 % (92.0-98.5); ABG PH 7.329 (7.350-7.450); ABG PO2 78.9 mmHg (75.0-100.0); AaDO2 343.2 mmHg; COHb 0.3 % (0.5-1.5); MetHb 0.1 % (0.0-1.5); O2Hb 93.5 % (94.0-97.0); PEEP,BG 12 cm H2O; SITE, ABG Right Radial; VT, ABG 500 mL
--- NOTE | 2019-10-27 10:00 | NUR ---
BINDER STRIPPER MACHINE: OGT residual 120ml, continue hold GTF
[2019-10-27] MEDS: SEVELAMER CARBONATE 800 MG POWD.PACK GT SCH ×3 (10:45→18:11)
[2019-10-27] MEDS: D5W IV PRN ×4 (11:04→21:25)
[2019-10-27] MEDS: MIDAZOLAM HCL IV PRN ×2 (11:04→21:24)
[2019-10-27] MEDS: FENTANYL CITRAT IV PRN ×2 (11:14→21:25)
--- NOTE | 2019-10-27 11:45 | NUR ---
CORRESPONDENT: pt is more rest, sedated, RR down to 28-31, O2sat. 100%, no laboring, less secretion, ST 105-115, SBP over 90, BG 125 now, still OGT residual 150ml/hold GTF, T101.3/cooling measures+, HOB over 40, low urine out/will s/w
--- NOTE | 2019-10-27 14:00 | NUR ---
PLATE MAKER: RR 26-30, O2sat. over 98% on FiO2 55%, ST down to 108-110, SBP over 90, OGT residual 150ml/continue hold GTF, all PM/skin/wound/bedbath care done
--- NOTE | 2019-10-27 16:15 | NUR ---
EVP OPERATIONS: Afib 130-150 ekg monitor reported, sent message to : ECG order? and re high OGTF residual
--- NOTE | 2019-10-27 16:30 | NUR ---
SOLAR ENERGY TECHNICIAN: HR converted to SR 120-125 surveillance system monitor reported
--- NOTE | 2019-10-27 16:40 | NUR ---
PORTRAIT STUDIO PHOTOGRAPHER: made face call, updated with pt.current condition, VS, afib episodes/ST now, BP/Levophed is off, sedation level with Versed, Fentanyl gtts, IVF, O2sat., vent.setting, said: ok to decrease FiO2 to 50%, T max 101.5, low urine output, high OGTF residual episodes/OGTF resumed at 16.00, meds, morning BG 79 episode
--- NOTE | 2019-10-27 17:51 | NUR ---
IP PARALEGAL: pt has one L.arm midline with 3 IVF/2 gtts, unable to place PIVL, spoke with charge nurse, BRAD Dotson: agree to place second IV midline, Jacob notified
--- NOTE | 2019-10-27 18:15 | NUR ---
ENVIRONMENT COORDINATOR: GERALD James placed in ADRIENNE midline/blood return+
--- NOTE | 2019-10-27 18:36 | NUR ---
JOURNEYMAN PAINTER: spoke with pharmacy to get Versed, Fentanyl bags for night time
[2019-10-27] MEDS: MEROPENEM 500 MG in IV NS 0.9% 50 ML IV SCH (18:52)
--- NOTE | 2019-10-27 19:35 | NUR ---
SKID STRAPPER NOTIFIED RT TO COLLECT SPUTUM CULTURE.
--- NOTE | 2019-10-27 19:46 | NUR ---
SALES ASSOCIATE FISHING RCD PT W/DX PNA ON ISOLATION PRECAUTIONS FOR COVID. ST ON MONITOR. INTUBATED 7.5 @ 25 W/VENT SETTINGS AC 22 500 50% +12. OG TUBE IN PLACE W/NEPRO @ 35 ML/HR. NOTED WITH HIGH RESIDUALS DURING DAY SHIFT. CHOU CATH IN PLACE DRAINING SCANT AMOUNT OF YELLOW URINE. SACRAL WOUND NOTED W/MEPILEX IN PLACE. NS @ 100 ML/HR; VERSED 7 MG/HR; FENTANYL 160 MCG/HR TO ADRIENNE AND VERONICA MIDLINE PATENT. CONTINUE TO MONITOR.
--- NOTE | 2019-10-27 20:03 | NUR ---
RT NOTE Pt rec'd orally intubated via ETT #7.5 secured at 25CM at the lipline. Pt on [facility] vent on AC mode settings as charted. Pt shows no signs of resp distress or sob. Pt sx'd for thick mod amt of pale yellow secretions. Alarms are set and audible. ambu bag bedside. Vent plugged into red outlet. Will continue to monitor closely. Addendum: 10/27/19 at 2003 by MARKY YORK RT Amended: Links added.
--- NOTE | 2019-10-27 20:06 | NUR ---
RT NOTE OBTAINED SPUTUM SAMPLE FROM PT. NO DISTRESS NOTED. RN LOLA AWARE.
--- NOTE | 2019-10-27 20:41 | NUR ---
SENIOR CONTRACTS ADMINISTRATOR NON ADMIN LANTUS PT IS HAVING EPISODES OF HYPOGLYCEMIA AND HIGH RESIDUALS. CONTINUE TO MONITOR.
[2019-10-27] MEDS: ATORVASTATIN 10 MG TABLET PO SCH (22:04)
--- NOTE | 2019-10-27 22:56 | NUR ---
VIDEOTAPE RECORDING ENGINEER PT NOTED TO BE DESATURATING RT AT BEDSIDE WITH FI02 INCREASED TO 60%. CONTINUE TO MONITOR.
[2019-10-27] MEDS ORDERED: NOREPINEPHRINE 4 MG/4 ML AMPUL IV ONE (23:10)
[2019-10-27] MEDS: NOREPINEPHRINE 8 MG in IV NS 0.9% 242 ML IV PRN (23:15)
[2019-10-28] VITALS (69 sets, daily range): BP systolic 64–134; BP diastolic 29–78
[2019-10-28] MEDS: IV NS 0.9% 1,000 ML IV PRN ×2 (01:46→11:53)
[2019-10-28] MEDS: NEPRO 1,000 ML BOTTLE GT PRN (01:46)
[2019-10-28 05:02] LABS: BASOPHILS % (AUTO) 0.4 % (0.0-2.0); EOSINOPHILS % (AUTO) 0.4 % (0.0-6.0); HEMATOCRIT 25 % (39-51); HEMOGLOBIN 7.9 g/dL (13.5-17.5); LYMPHOCYTES # (AUTO) 0.5 /CMM (0.8-4.8); LYMPHOCYTES % (AUTO) 4.5 % (20.0-44.0); MEAN CORPUSCULAR HGB CONC 31 g/dl (31.0-36.0); MEAN CORPUSCULAR VOLUME 92 fL (80-96); MONOCYTES # (AUTO) 0.5 /CMM (0.1-1.30); MONOCYTES % (AUTO) 5.3 % (2.0-12.0); NEUTROPHILS % (AUTO) 89.4 % (43.0-81.0); PLATELET COUNT (AUTO) 189 /CMM (150-450); RED BLOOD CELL COUNT(AUTO) 2.74 MIL/uL (4.5-6.0); WHITE BLOOD COUNT (AUTO) 10.1 K/uL (4.3-11.0)
[2019-10-28 05:23] LABS: ALANINE AMINOTRANSFERASE 25 U/L (12-78); ALBUMIN 1.6 g/dL (3.4-5.0); ALKALINE PHOSPHATASE 94 U/L (46-116); ASPARTATE AMINOTRANSFERASE 40 U/L (15-37); BILIRUBIN,TOTAL 0.3 mg/dL (0.2-1.0); CALCIUM, SERUM 7.7 mg/dL (8.5-10.1); CARBON DIOXIDE 20 mmol/L (21-32); CHLORIDE 104 mmol/L (98-107); CREATININE 3.8 mg/dL (0.6-1.3); GLUCOSE 110 mg/dL (74-106); MAGNESIUM 2.6 mg/dL (1.8-2.4); POTASSIUM 5.4 mmol/L (3.5-5.1); SODIUM SERUM 139 mmol/L (136-145); TOTAL PROTEIN, SERUM 5.9 g/dL (6.4-8.2)
[2019-10-28 05:28] LABS: UREA NITROGEN, BLOOD 154 mg/dL (7-18)
[2019-10-28 05:29] LABS: PHOSPHORUS 11.9 mg/dL (2.5-4.9)
[2019-10-28] MEDS: BLOOD SUGAR DIAGNOSTIC 1 EACH STRIP IN SCH ×3 (05:30→18:37)
--- NOTE | 2019-10-28 05:57 | NUR ---
CARE TRANSITIONS MANAGER PT NOTED TO BE DESATURATING LABORED BREATHING RT AT BEDSIDE. FIO2 INCREASED TO 70%. CONTINUE TO MONITOR.
--- NOTE | 2019-10-28 05:59 | NUR ---
RT NOTE increased fio2 to 70 d/t spo 87-89%. PETE DENIS notified. Addendum: 10/28/19 at 0600 by MARKY YORK RT Amended: Links added.
--- NOTE | 2019-10-28 08:00 | NUR ---
STEEL HEATER: pt.is sedated with 7mg/h Versed, 160mcg/h Fentanyl, grimacing, slightly bitting ETT, O2sat. 94-95%, RR 28-32, no laboring, FiO2 70%, peep12, will increase sedation, ST 110-120, on 0.1 mcg/kg/m Levophed gtt, SBP over 90, continue titrate, OGTF residual is 80ml/keep HOB over 45, Lantus was not given at 21.00, BG 98 now/continue hold, on mild ISS
[2019-10-28] MEDS: SEVELAMER CARBONATE 800 MG POWD.PACK GT SCH ×3 (08:13→17:28)
[2019-10-28] MEDS: ALLOPURINOL 100 MG TABLET PO SCH (08:22)
[2019-10-28] MEDS: MEROPENEM 500 MG in IV NS 0.9% 50 ML IV SCH ×2 (08:22→21:42)
[2019-10-28] MEDS: CHOLECALCIFEROL (VITAMIN D 3) 400 UNIT TABLET PO SCH (08:22)
[2019-10-28] MEDS: SENNOSIDES 8.6 MG TABLET GT SCH (08:22)
[2019-10-28] MEDS: PANTOPRAZOLE 40 MG/PACK PACK GT SCH (08:22)
[2019-10-28] MEDS: METOPROLOL TARTRATE 25 MG TABLET NG SCH (08:22)
[2019-10-28] MEDS: Z GUARD REMEDY 2 OZ OINT TP SCH ×2 (08:23→21:53)
[2019-10-28] MEDS ORDERED: SODIUM POLYSTYRENE SULFONATE 15 G/60 ML BOTTLE PO ONE (08:30)
[2019-10-28] MEDS: INSULIN GLARGINE, 100 UNIT/ML CARTRIDGE SQ SCH ×2 (09:00→21:00)
--- NOTE | 2019-10-28 09:15 | NUR ---
FACILITY SALES AND ADMIN: RT advanced into ETT for 3 cm f/u Radiol.Dep. call, CXR ordered
[2019-10-28] MEDS: D5W IV PRN ×4 (11:42→22:11)
[2019-10-28] MEDS: MIDAZOLAM HCL IV PRN ×2 (11:42→22:10)
[2019-10-28] MEDS: FENTANYL CITRAT IV PRN ×2 (11:53→22:11)
[2019-10-28] MEDS: INSULIN REGULAR, HUMAN 100 UNIT/ML 3 ML VIAL SQ PRN (12:11)
--- NOTE | 2019-10-28 12:15 | NUR ---
CHIEF WELLNESS OFFICER: updated with pt.current condition, sedation level/Versed, fentanyl gtts, vent, setting, FiO2 60%, peep12, O2sat., large thick suction amount, tachypnea episodes with laboring breathing, ordered: ok for 10 mg/h max dose Versed gtt, VS, I/O, OGTF with high residual episodes, low urine out, Levophed gtt, CXR, labs, see new orders
--- NOTE | 2019-10-28 14:00 | NUR ---
OBGYN HOSPITALIST PHYSICIAN: made face call in room/updated with pt.sedation level, Versed, Fentanyl rate, Levophed gtt, VS, ST, edema level, I/O, IVF, OGTF with one more high residual episode, BMx2, labs, low urine output, BG level, meds, CXR, ordered: stop IVF, see new orders
[2019-10-28] MEDS: NOREPINEPHRINE 8 MG in IV NS 0.9% 242 ML IV PRN ×2 (14:09→23:34)
--- NOTE | 2019-10-28 18:40 | NUR ---
HAND SIZER: Afib on monitor, 135-155, sent message to , increased Levophed to 0.3 mcg/kg/m d/t low BP, all PM/skin/wounds/bedbath care done
--- NOTE | 2019-10-28 19:00 | NUR ---
RECEIVED PATIENT ORALLY INTUBATED TO THE VENTILATOR ON AC MODE WITH PEEP=12,BREATHING LABORED,SEDATED ON FENTANYL AND VERSED DRIP.ON LEVOPHED DRIP FOR BP SUPPORT PATIENT RHYTHM AFIB WITH RVR (SINCE 1729 PER DAY SHIFT RN(RATE 130'S-140'S INITIALLY),NOW RATE 150-160'S.( MADE AWARE BY DAYSHIFT RN BUT NO ORDERS ,NOTHING TO BE DONE,THINKS ITS ALL SECONDARY TO SEPSIS), WILL CLOSELY MONITOR PATIENT. 2000 PATIENT WITH LOW GRADE FEVER,COOLING MEASURES DONE.MADE PATIENT COMFORTABLE.
[2019-10-28 19:58] LABS: APPEARANCE,URINE CLEAR (CLEAR); BILIRUBIN,URINE NEGATIVE (NEGATIVE); BLOOD, URINE LARGE Ery/uL (NEGATIVE); COLOR,URINE YELLOW (YELLOW); KETONES,URINE NEGATIVE (NEGATIVE); LEUKOCYTE ESTERASE ,URINE NEGATIVE (NEGATIVE); NITRITE, URINE NEGATIVE (NEGATIVE); PROTEIN,URINE TRACE mg/dl (NEGATIVE); UGLUCOSE NEGATIVE (NEGATIVE); UROBILINOGEN,URINE 0.2 EU/dL (0.2)
--- NOTE | 2019-10-28 20:00 | NUR ---
TUBE FEEDING HELD,RESIDUAl > 300 ML. WILL RECHECK RESIDUALS AND WILL RESUME FEEDING IF RESIDUAL GOES DOWN.
[2019-10-28 20:10] LABS: CREATININE, URINE 100.2 MG/DL (30.0-125.0); URINE TOTAL PROTEIN 62.9 mg/dL (0-11.9)
[2019-10-28 20:16] LABS: BACTERIA,URINE 1+ /HPF (None Seen); RBC,URINE 51-80 /HPF (0-2); WBC,URINE 0-2 /HPF (0-3)
[2019-10-28 20:17] LABS: COARSE GRANULAR CASTS,URINE Few /LPF (None Seen); SQUAMOUS EPITHELIAL CELL,UR Few /HPF (None Seen)
[2019-10-28 20:57] LABS: EOSINOPHIL,URINE Rare
--- NOTE | 2019-10-28 21:00 | NUR ---
CONVERTED BACK TO SINUS TACH. RATE 120'S, BP IMPROVED WELL.
--- NOTE | 2019-10-28 21:30 | NUR ---
lANTUS HELD,FEEDING OFF DUE TO HIGH RESIDUAL
[2019-10-28] MEDS: ATORVASTATIN 10 MG TABLET PO SCH (21:43)
[2019-10-29] VITALS (41 sets, daily range): BP systolic 28–168; BP diastolic 20–74
--- NOTE | 2019-10-29 | NUR ---
HEART RATE STAYING IN THE 120'S, SINUS, WILL TRY TO WEAN DOWN LEVOPHED (OBSERVE IF HR WILL GO SLOWER IF LEVOPHED DRIP IE LESSER). FEEDING RESIDUAL 100 ML, TUBE FEEDING RESUMED,WILL MONITOR RESIDUALS.
[2019-10-29] MEDS: BLOOD SUGAR DIAGNOSTIC 1 EACH STRIP IN SCH ×4 (00:11→18:24)
[2019-10-29] MEDS: INSULIN REGULAR, HUMAN 100 UNIT/ML 3 ML VIAL SQ PRN ×2 (00:29→05:51)
--- NOTE | 2019-10-29 00:30 | NUR ---
BREATHING LABORED, VERSED DRIP INCREASED TO 9 MG/HR
--- NOTE | 2019-10-29 02:00 | NUR ---
0200 AM BATH DONE,TOLERATED TURNING/MOVING, WITH BRIEF PERIOD OF DESATURATION (88-89 %),BUT EASILY BACK 92-93 % POST TURNING.
--- NOTE | 2019-10-29 04:00 | NUR ---
STILL TACHCARDIC BUT NOT NO MORE EPISODE OF AFIB WITH RVR.
--- NOTE | 2019-10-29 06:00 | NUR ---
REMAINS WITH LABORED BREATHING ,WILL VERSED DRIP INCREASED.BP LABILE ,WILL TITRATED LEVOPHED .
[2019-10-29] MEDS: NOREPINEPHRINE 8 MG in IV NS 0.9% 242 ML IV PRN ×3 (06:29→15:20)
[2019-10-29] MEDS: MIDAZOLAM HCL IV PRN ×2 (08:38→18:44)
[2019-10-29] MEDS: D5W IV PRN ×3 (08:38→18:44)
[2019-10-29] MEDS: INSULIN GLARGINE, 100 UNIT/ML CARTRIDGE SQ SCH ×2 (09:00→21:00)
[2019-10-29] MEDS ORDERED: IV NS 0.9% 1,000 ML IV PRN (09:19)
[2019-10-29] MEDS: Z GUARD REMEDY 2 OZ OINT TP SCH ×2 (09:45→21:02)
[2019-10-29] MEDS: CHOLECALCIFEROL (VITAMIN D 3) 400 UNIT TABLET PO SCH (09:45)
[2019-10-29] MEDS: SEVELAMER CARBONATE 800 MG POWD.PACK GT SCH ×3 (09:45→18:23)
[2019-10-29] MEDS: ALLOPURINOL 100 MG TABLET PO SCH (09:45)
[2019-10-29] MEDS: SENNOSIDES 8.6 MG TABLET GT SCH (09:45)
[2019-10-29] MEDS: MEROPENEM 500 MG in IV NS 0.9% 50 ML IV SCH ×2 (09:45→21:01)
[2019-10-29] MEDS: PANTOPRAZOLE 40 MG/PACK PACK GT SCH (09:45)
[2019-10-29 10:51] LABS: BASOPHILS % (AUTO) 0.6 % (0.0-2.0); EOSINOPHILS % (AUTO) 0.9 % (0.0-6.0); HEMATOCRIT 21 % (39-51); LYMPHOCYTES # (AUTO) 0.3 /CMM (0.8-4.8); LYMPHOCYTES % (AUTO) 4.6 % (20.0-44.0); MEAN CORPUSCULAR HGB CONC 31 g/dl (31.0-36.0); MEAN CORPUSCULAR VOLUME 91 fL (80-96); MONOCYTES # (AUTO) 0.4 /CMM (0.1-1.30); MONOCYTES % (AUTO) 6.1 % (2.0-12.0); NEUTROPHILS % (AUTO) 87.8 % (43.0-81.0); PLATELET COUNT (AUTO) 286 /CMM (150-450); RED BLOOD CELL COUNT(AUTO) 2.29 MIL/uL (4.5-6.0); WHITE BLOOD COUNT (AUTO) 6.8 K/uL (4.3-11.0)
[2019-10-29] MEDS: FENTANYL CITRAT IV PRN (10:59)
[2019-10-29 11:15] LABS: ALANINE AMINOTRANSFERASE 20 U/L (12-78); ALBUMIN 1.5 g/dL (3.4-5.0); ALKALINE PHOSPHATASE 73 U/L (46-116); ASPARTATE AMINOTRANSFERASE 37 U/L (15-37); BILIRUBIN,TOTAL 0.3 mg/dL (0.2-1.0); CALCIUM, SERUM 7.6 mg/dL (8.5-10.1); CARBON DIOXIDE 19 mmol/L (21-32); CHLORIDE 103 mmol/L (98-107); CREATININE 4.7 mg/dL (0.6-1.3); GLUCOSE 100 mg/dL (74-106); MAGNESIUM 2.6 mg/dL (1.8-2.4); POTASSIUM 5.8 mmol/L (3.5-5.1); SODIUM SERUM 138 mmol/L (136-145); TOTAL PROTEIN, SERUM 6.8 g/dL (6.4-8.2)
[2019-10-29 11:21] LABS: UREA NITROGEN, BLOOD 165 mg/dL (7-18)
[2019-10-29 11:55] LABS: HEMOGLOBIN 6.5 g/dL (13.5-17.5)
[2019-10-29 12:25] LABS: BAND % (MANUAL) 8 % (0.0-5.0); EOSINOPHILS % (MANUAL) 1 % (0-4); LYMPHOCYTES % (MANUAL) 2 % (16-48); MONOCYTES % (MANUAL) 6 % (0-11.0); NEUTROPHILS % (MANUAL) 83 (42-76)
[2019-10-29 12:37] LABS: HEMOGLOBIN 7.4 g/dL (13.5-17.5)
--- NOTE | 2019-10-29 13:42 | NUR ---
RN NOTE PATIENT BS 145 INSULIN HELD DUE TO NPO STATUS
[2019-10-29] MEDS ORDERED: NOREPINEPHRINE 32 MG in IV NS 0.9% 218 ML IV PRN (15:00)
[2019-10-29] MEDS ORDERED: VANCOMYCIN 0.75 GM in IV D5W 250 ML IV SCH (16:00)
--- NOTE | 2019-10-29 17:36 | NUR ---
RT NOTE PT REMAINS MECHANICALLY VENTILATED VIA 7.5 ETT 25 CM AT LIP. CUFF INFLATED. ETT SECURE. VENTILATOR SETTINGS PRESCRIBED. ALARMS SET PER PROTOCOL AND AUDIBLE. VENT PLUGGED IN TO RED OUTLET. AMBU BAG AT BED SIDE. NO DISTRESS NOTED. Addendum: 10/29/19 at 1738 by AURELIA TAYLOR RT Amended: Links added.
--- NOTE | 2019-10-29 18:59 | NUR ---
RN CLOSING NOTES RECEIVED PT FROM PETE TOSCANO AT 1730. PT REMAINS INTUBATED, ON VENT. NO RESPIRATORY DISTRESS NOTED. NO SOB NOTED. NO SIGNS OF PAIN NOTED. ON VERSED, FENTANYL AND LEVOPHED DRIP. IVF INFUSING. ON TUBE FEEDING. RESIDUAL CLOSELY MONITOR. KEPT COMFORTABLE. WILL ENDORSE FOR CONTINUITY OF CARE
--- NOTE | 2019-10-29 19:18 | NUR ---
Received report from day shift patient is critically ill hemodynamically unstable and waiting for Levophed gtt from pharmacy.Called pharmacy again but not answering.Tried several times more and told the pharmacy the patient has 0 BP.Patient intubated to vent on full vent support 91%-95%. Versed gtt infusing at 9 mg/hr,Fentanyl gtt infusing 2.8 mcg,NS at 50ml/hr all infusing via ADRIENNE ML. Site intact.OGT feeding put on hold patient place on supine positioned.FC to gravity drainage with scanty urine output.Closely monitored.
--- NOTE | 2019-10-29 19:49 | NUR ---
Patient nolan'd down to 30 then became asystole Code julius called CPR started per ACLS protocol. Please refer to lacie [place] record.
--- NOTE | 2019-10-29 20:22 | NUR ---
Patient still very critical nolan'd down 20's then asystole no palpable pulse not audible by doppler. 2ND CODE BLUE called.CPR started per ACLS protocol.Please refer to code julius record.
[2019-10-29] MEDS ORDERED: SODIUM BICARBONATE SYR 50 MEQ/50 ML DISP.SYRIN ONE (21:00)
[2019-10-29] MEDS ORDERED: EPINEPHRINE (1:10,000) SYRINGE 1 MG/10 ML DISP.SYRIN ONE (21:00)
[2019-10-29] MEDS ORDERED: PHENYLEPHRINE 10 MG/ML VIAL ONE (21:04)
[2019-10-29] MEDS: PHENYLEPHRINE 100 MG in IV NS 0.9% 240 ML IV PRN ×2 (21:16→21:28)
[2019-10-29] MEDS: ATORVASTATIN 10 MG TABLET PO SCH (22:00)
[2019-10-29] MEDS ORDERED: VASOPRESSIN INJ 20 UNIT/ML VIAL ONE (22:26)
--- NOTE | 2019-10-29 22:27 | NUR ---
Patient became agonal then asystole CODE JULIUS called 3rd time.CPR started per ACLS protocol. patient pronounced by ER MD Chapman.Please refer to code julius record.
[2019-10-29] MEDS ORDERED: VASOPRESSIN INJ 40 UNIT in IV NS 0.9% 38 ML IV PRN (22:30)
--- NOTE | 2019-10-29 22:50 | NUR ---
hand or machine paster,Ed Patricia talked to patient son Kassy about patient .Post mortem care done.
--- NOTE | 2019-10-29 23:30 | NUR ---
Tried to call [facility] but not responding.Will try again.
--- NOTE | 2019-10-29 23:30 | NUR ---
Body sent to [facility] with his belongings.
--- NOTE | 2019-10-30 00:20 | NUR ---
Tried several times more to contact [facility] finally get hold of Guadalupe. reported and other questions answered.Referral ID # [id number]
--- NOTE | 2019-10-30 00:34 | NUR ---
Wilder Haas from [facility] called.All questions answered.Per Wilder case closed.
== END 2019-10-30 01:25 | disposition expired | DRG 207 ==
LOC: ER 14:44 → TELE1 21:16 → MEDSG1 10-15 13:15 → ICU 10-16 04:16
PROVIDERS: ADMIT Internal Medicine; ATTEND Internal Medicine
PROC: 30233L1 Transfusion of Nonautologous Fresh Plasma into Peripheral Vein, Percutaneous Approach (ICD-10-PCS; 2019-10-15)
PROC: 05HC33Z Insertion of Infusion Device into Left Basilic Vein, Percutaneous Approach (ICD-10-PCS; 2019-10-15)
PROC: 5A1955Z Respiratory Ventilation, Greater than 96 Consecutive Hours (ICD-10-PCS; principal; 2019-10-16)
PROC: 0BH18EZ Insertion of Endotracheal Airway into Trachea, Via Natural or Artificial Opening Endoscopic (ICD-10-PCS; 2019-10-16)
PROC: 05H933Z Insertion of Infusion Device into Right Brachial Vein, Percutaneous Approach (ICD-10-PCS; 2019-10-27)
PROC: 5A2204Z Restoration of Cardiac Rhythm, Single (ICD-10-PCS; 2019-10-29)
PROC: 5A2204Z Restoration of Cardiac Rhythm, Single (ICD-10-PCS; 2019-10-30)
DX: U07.1 COVID-19 (principal); A41.89 Other specified sepsis; J96.01 Acute respiratory failure with hypoxia; J12.89 Other viral pneumonia; N17.0 Acute kidney failure with tubular necrosis; G92 Toxic encephalopathy; J15.9 Unspecified bacterial pneumonia; R65.21 Severe sepsis with septic shock; E87.0 Hyperosmolality and hypernatremia; J44.0 Chronic obstructive pulmonary disease with (acute) lower respiratory infection; E87.2 Acidosis; F03.91 Unspecified dementia, unspecified severity, with behavioral disturbance; I46.9 Cardiac arrest, cause unspecified; I12.9 Hypertensive chronic kidney disease with stage 1 through stage 4 chronic kidney disease, or unspecified chronic kidney disease; E78.5 Hyperlipidemia, unspecified; E86.0 Dehydration; E11.22 Type 2 diabetes mellitus with diabetic chronic kidney disease; D63.1 Anemia in chronic kidney disease; Z79.4 Long term (current) use of insulin; Z79.82 Long term (current) use of aspirin; Z79.899 Other long term (current) drug therapy; E11.65 Type 2 diabetes mellitus with hyperglycemia; E78.1 Pure hyperglyceridemia; I48.91 Unspecified atrial fibrillation; D63.8 Anemia in other chronic diseases classified elsewhere; N18.3 Chronic kidney disease, stage 3 (moderate); Z93.1 Gastrostomy status; M10.9 Gout, unspecified; E87.8 Other disorders of electrolyte and fluid balance, not elsewhere classified; E83.39 Other disorders of phosphorus metabolism; N20.0 Calculus of kidney; N28.1 Cyst of kidney, acquired; E87.5 Hyperkalemia; B95.62 Methicillin resistant Staphylococcus aureus infection as the cause of diseases classified elsewhere
CPT/HCPCS: 31720; 36415; 36600; 71045-TC; 80048-TC; 80053-TC; 80061-TC; 80076-TC; 81000-TC; 82550-TC; 82570-TC; 82728-TC; 82803-TC; 82962-TC; 83605-TC; 83690-TC; 83735-TC; 83880; 83970; 84100-TC; 84155; 84155-TC; 84165; 84300-TC; 84443-TC; 84478-TC; 85025-TC; 85027-TC; 85378-TC; 85730-TC; 86140-TC; 86480; 86850-TC; 87040-TC; 87070-TC; 87081-TC; 92950-TC; 93307-TC; 94002-TC; 94003-TC; 94640-TC; 94760-TC; 94799-TC; A4216; A6403; G0378; J0171; J0330; J0456; J0696; J1100; J1200; J1644; J1815; J1940; J2185; J2250; J2270; J2370; J2405; J3010; J3262; J3370; J3480; J3490; J7030; J7042; J7050; J7060; J7070; J7120; P9017-BL; U0003-CS